=== PATIENT | male | born 1950 | race Caucasian/White ===

== ENCOUNTER 2018-10-23 15:02 | Outpatient (REF) | payer MEDICARE, SELFPAY ==
[2018-10-23 19:39] LABS: HCT 41.8 % (40.0-50.0); HGB 13.5 g/dL (13.5-17.5); Mean Corp. HGB Concentration 32.3 g/dL (32.0-36.0); Mean Corpuscular Hemoglobin 29.7 pg (27.0-33.0); Mean Corpuscular Volume 92.1 fL (80-95); Mean Platelet Volume 11.3 fL (8.0-11.0); Platelet Count 258 x1000/uL (130-400); RBC 4.54 m/cumm (4.50-6.00); RBC Distribution Width 14.4 % (11.8-14.1); White Blood Cell Count 8.38 k/cumm (4.4-10.8)
[2018-10-23 19:40] LABS: ALT 271 U/L (12-78); AST 163 U/L (15-37); Albumin 3.5 g/dL (3.4-5.0); Alkaline Phosphatase 485 U/L (46-116); Anion Gap 8.4 mmol/L (3-11); BUN 52 mg/dL (7-18); Bilirubin, Total 1.4 mg/dL (0.2-1.0); CO2 26.6 mmol/L (21.0-32.0); CREATININE 1.42 mg/dL (0.70-1.30); Calcium 9.6 mg/dL (8.5-10.1); Chloride 97 mmol/L (98-107); Estimated GFR 49.73 (mL/min/1.73m2); Glucose 143 mg/dL (70-100); Potassium 4.6 mmol/L (3.5-5.1); Sodium 132 mmol/L (136-145); Total Protein 7.9 g/dL (6.4-8.2)
[2018-10-26 10:13] LABS: PSA, Screening 0.5 ng/ml (0-4.5)
== END 2018-10-23 15:22 ==
LOC: NCHCN 15:02
PROVIDERS: PCP Physician Assistant; Visit Provider Physician Assistant Medical
DX: R63.4 Abnormal weight loss (principal); E11.9 Type 2 diabetes mellitus without complications; I10 Essential (primary) hypertension; F10.10 Alcohol abuse, uncomplicated; Z12.5 Encounter for screening for malignant neoplasm of prostate; R94.5 Abnormal results of liver function studies
CPT/HCPCS: 80053; 84153; 85027

== ENCOUNTER 2018-12-23 13:13 | Outpatient (REF) | payer MEDICARE, SELFPAY ==
[2018-12-23 20:57] LABS: HCT 39.5 % (40.0-50.0); HGB 13.2 g/dL (13.5-17.5); Mean Corp. HGB Concentration 33.4 g/dL (32.0-36.0); Mean Corpuscular Hemoglobin 30.8 pg (27.0-33.0); Mean Corpuscular Volume 92.1 fL (80-95); Mean Platelet Volume 11.3 fL (8.0-11.0); Platelet Count 181 x1000/uL (130-400); RBC 4.29 m/cumm (4.50-6.00); RBC Distribution Width 14.6 % (11.8-14.1); White Blood Cell Count 5.82 k/cumm (4.4-10.8)
[2018-12-23 21:21] LABS: Anion Gap 11.4 mmol/L (3-11); BUN 12 mg/dL (7-18); CO2 25.6 mmol/L (21.0-32.0); CREATININE 0.87 mg/dL (0.70-1.30); Calcium 9.2 mg/dL (8.5-10.1); Chloride 102 mmol/L (98-107); Glucose 133 mg/dL (70-100); Potassium 4.4 mmol/L (3.5-5.1); Sodium 139 mmol/L (136-145)
[2018-12-23 21:43] LABS: Troponin I < 0.05 ng/mL (0.00-0.06)
== END 2018-12-23 13:33 ==
LOC: NCHCN 13:13
PROVIDERS: PCP Physician Assistant Medical; Visit Provider Physician Assistant Medical
DX: R07.89 Other chest pain (principal); I10 Essential (primary) hypertension; R42 Dizziness and giddiness
CPT/HCPCS: 80048; 85027; 84484

== ENCOUNTER 2018-12-30 00:03 | Outpatient (CLI) | payer MEDICARE, SELFPAY ==
--- NOTE | 2018-12-30 09:30 | MERGEMPI_ITS ---
*[facility]* *[facility]* [address] [place] [address] Myocardial Perfusion Imaging - SPECT Regadenoson Date of study: 12/30/2018 *PATIENT PRESENTATION* Height: 176.5cm (69.5in) Blood Pressure: Weight: 75kg (165lb) BSA: 1.92m^2 Referring physician: Isak Paulino Ordering physician: Liam Yung V Impressions: - Normal myocardial perfusion and contraction after pharmacological stress. - Low risk of cardiac events. Summary: 1. Myocardial perfusion imaging: No myocardial perfusion defects noted. 2. The calculated left ventricular ejection fraction after stress: 51%. LV global systolic function is low normal. No left ventricular regional motion abnormality. 3. Stress ECG conclusions: The stress ECG is negative. 4. Baseline ECG: Sinus bradycardia. 5. Imaging information: gated. Image quality reduced due to diaphragmatic attenuation. Attenuation correction used. Indication: R07.89, Appropriate Use Criteria: A (Appropriate). History: REASON FOR VISIT: PER PT'S REPORT HE HAS BEEN EXPERIENCING PROGRESSIVELY WORSENING EPISODES OF INTERMITTENT CHEST PAINS ASSOCIATED WITH SHORTNESS OF BREATH, DIAPHORESIS AND AT TIMES NAUSEA. SOMETIMES THE CHEST PAIN WILL RADIATE DOWN HIS LEFT ARM. IT IS ALWAYS RELATED TO ACTIVITY AND IT WILL SUBSIDE WITH REST. Risk factors: Family history of coronary artery disease. Hypertension. Diabetes mellitus. Dyslipidemia. ALLERGIES: PENICILLINS. NSAIDS. MEDICATIONS: FERROUS SULFATE 325 MG WITH VITAMIN C DAILY. LISINOPRIL 5 MG DAILY. ATENOLOL 25 MG DAILY. OMEPRAZOLE 20 MG DAILY. ALLOPURINOL 300 MG DAILY. Imaging Technique: Protocol: Regadenoson. Acquisition: Gated SPECT; 1 day - rest/stress. The patient was imaged in the supine position. Attenuation correction used. Isotope administration: - Rest. Tc[99m]-sestamibi. Dose: 10.2mCi. Injection time: 09:20 AM. Injection to stress time: 00:45. - Stress. Tc[99m]-sestamibi. Dose: 32mCi. Injection time: 11:15 AM. 1-2 min before end of exercise Baseline ECG: SINUS BRADYCARDIA RHYTHM HR 57 BPM. Sinus bradycardia. Stress protocol: +--------+--+ + + !Stage !HR!BP (mmHg) !Comments ! +--------+--+ + + !Baseline!60!150/76 (101)! ! +--------+--+ + + !1 min !86!156/82 (107)!Inject Regadenoson.! +--------+--+ + + !3 min !74!160/80 (107)! ! +--------+--+ + + !6 min !69!150/70 (97) ! ! +--------+--+ + + * Stress results: The rate-pressure product for the peak heart rate and blood pressure was 70147ce Hg/min. Stress ECG: STRESS TEST ENDED IN 6 MINUTES AND 21 SECONDS. PT EXPERIENCED NO SIGNIFICANT SIDE EFFECTS FROM LEXISCAN INJECTION. NORMAL HEART RATE AND BLOOD PRESSURE RESPONSE TO LEXISCAN INJECTION. NO ECTOPY. NO ANGINA. NO SIGNIFICANT ST SEGMENT CHANGES. The stress ECG is negative. Myocardial perfusion: Imaging information: gated. Image quality reduced due to diaphragmatic attenuation. Left ventricular size is normal. No myocardial perfusion defects noted. Ventricular Function (Wall Motion): The calculated left ventricular ejection fraction after stress: 51%. LV global systolic function is low normal. No left ventricular regional motion abnormality. Right ventricular function is normal. Study data: Isak Paulino MD supervised and was readily available during the procedure. This study was interpreted by [facility]. Study status: Routine. Consent: The risks, benefits, and alternatives to the procedure were explained to the patient and informed consent was obtained. Procedure: Initial setup. A baseline ECG was recorded. Surface ECG leads and manual cuff blood pressure measurements were monitored. Heart sounds: Normal. Lung sounds: Normal. Regadenoson stress test. Stress testing was performed, with regadenoson by intravenous bolus, for a total dose of 0.4mgover 10.00sec, followed by a 5ml saline flush. The infusion was terminated due to per protocol. The patient was unable to exercise due to leg, joint, or back pain. Study completion: All catheters inserted during the procedure were removed. The patient tolerated the procedure well and was discharged from the lab. Discharge: The patient left the laboratory in stable condition. Birthdate: Patient birthdate: 1950. Sex: Gender: male. Study date: Study date: 12/30/2018. Study time: 00:01 AM. Signature Documentation: - The imaging portion of this study was interpreted by Nuclear Laser Systems Engineer Isak Paulino MD. - The Stress ECG portion of this study was interpreted by Isak Paulino MD. Electronically signed by Isak Paulino 12/30/2018 12:50
[2018-12-30] MEDS: Regadenoson 0.4 MG/5 ML SYR IVP (11:29)
== END 2018-12-30 00:23 ==
PROVIDERS: PCP Physician Assistant Medical; Visit Provider Physician Assistant Medical
DX: R07.89 Other chest pain (principal); R06.02 Shortness of breath; I10 Essential (primary) hypertension; E11.9 Type 2 diabetes mellitus without complications; E78.5 Hyperlipidemia, unspecified; Z82.49 Family history of ischemic heart disease and other diseases of the circulatory system
CPT/HCPCS: 78452; 93016; 93018; 93017; J2785

== ENCOUNTER 2019-05-24 18:17 | Outpatient (REF) | payer MEDICARE, SELFPAY ==
[2019-05-24 19:57] LABS: COMMENT (LAB VIEW ONLY) 188.11 mg/dL; Microalb ug/mg Crea 13.3 ug/mg Cr
== END 2019-05-24 18:37 ==
LOC: NCHCN 18:17
PROVIDERS: PCP Physician Assistant Medical; Visit Provider Internal Medicine
DX: E11.9 Type 2 diabetes mellitus without complications (principal)
CPT/HCPCS: 82043; 82570

== ENCOUNTER 2020-03-27 18:45 | Outpatient (REF) | payer MEDICARE, SELFPAY ==
[2020-03-27 20:02] LABS: HCT 36.4 % (40.0-50.0); HGB 12.9 g/dL (13.5-17.5); MCH 33.6 pg (27.0-33.0); MCHC 35.4 % (32.0-36.0); MCV 94.8 fL (80-95); MPV 11.3 fL (8.0-11.0); Platelet Count 197 10^3/uL (130-400); RBC 3.84 10^6/uL (4.36-5.78); RDW 14.1 % (11.8-14.1); RDW-SD 48.7 fL; WBC 7.37 10^3/uL (4.4-10.8)
[2020-03-27 20:19] LABS: AST 40 U/L (15-37); Albumin 3.9 g/dL (3.4-5.0); Alkaline Phosphatase 100 U/L (46-116); Anion Gap 6.9 mmol/L (3-11); BUN 19 mg/dL (7-18); Bilirubin, Total 0.6 mg/dL (0.2-1.0); CO2 28.1 mmol/L (21.0-32.0); CREATININE 1.29 mg/dL (0.70-1.30); Calcium 8.6 mg/dL (8.5-10.1); Chloride 102 mmol/L (98-107); Estimated GFR 55.22 (mL/min/1.73m2); Glucose 165 mg/dL (74-106); Potassium 4.8 mmol/L (3.5-5.1); Sodium 137 mmol/L (136-145)
[2020-03-28 10:13] LABS: Iron 103 ug/dL (65-175); Transferrin Sat 41 % (20-55)
[2020-03-28 10:14] LABS: Total Iron Binding Capacity 251 ug/dL (250-450)
[2020-03-28 10:15] LABS: Ferritin 940 ng/mL (26-388)
[2020-03-28 10:33] LABS: Total Protein 7.3 g/dL (6.4-8.2)
== END 2020-03-27 19:05 ==
LOC: NCHCN 18:45
PROVIDERS: PCP Physician Assistant Medical; Visit Provider Internal Medicine
DX: D64.9 Anemia, unspecified (principal); K21.9 Gastro-esophageal reflux disease without esophagitis; F10.10 Alcohol abuse, uncomplicated; R07.89 Other chest pain; M16.0 Bilateral primary osteoarthritis of hip
CPT/HCPCS: 80053; 85027; 82728; 83540; 83550

== ENCOUNTER 2021-03-22 16:59 | Outpatient (REF) | payer MEDICARE, SELFPAY ==
[2021-03-22 19:28] LABS: HCT 35.8 % (40.0-50.0); HGB 11.8 g/dL (13.5-17.5); MCH 30.6 pg (27.0-33.0); MPV 10.9 fL (8.0-11.0); Platelet Count 205 10^3/uL (130-400); RBC 3.85 10^6/uL (4.36-5.78); RDW-SD 47.8 fL; WBC 8.45 10^3/uL (4.4-10.8)
[2021-03-22 19:35] LABS: ALT 39 U/L (16-63); AST 35 U/L (15-37); Albumin 3.7 g/dL (3.4-5.0); Alkaline Phosphatase 98 U/L (46-116); Anion Gap 5.5 mmol/L (3-11); BUN 16 mg/dL (7-18); Bilirubin, Total 0.4 mg/dL (0.2-1.0); CO2 31.5 mmol/L (21.0-32.0); CREATININE 1.2 mg/dL (0.70-1.30); Calcium 8.8 mg/dL (8.5-10.1); Chloride 103 mmol/L (98-107); Estimated GFR 59.86 (mL/min/1.73m2); Glucose 111 mg/dL (74-106); NT-proBNP 368 pg/mL (<300); Potassium 4.5 mmol/L (3.5-5.1); Sodium 140 mmol/L (136-145); Total Protein 7.4 g/dL (6.4-8.2)
== END 2021-03-22 17:00 | disposition home or self-care (01) ==
LOC: NCHCN 16:59
PROVIDERS: PCP Physician Assistant Medical; Visit Provider Internal Medicine
DX: E11.9 Type 2 diabetes mellitus without complications (principal); I10 Essential (primary) hypertension; J84.9 Interstitial pulmonary disease, unspecified; F10.10 Alcohol abuse, uncomplicated
CPT/HCPCS: 80053; 85027; 83880

== ENCOUNTER 2021-09-19 16:19 | Outpatient (REF) | payer MEDICARE, SELFPAY ==
[2021-09-19 22:30] LABS: COMMENT (LAB VIEW ONLY) 424.71 mg/dL; Microalb ug/mg Crea 13.8 ug/mg Cr
== END 2021-09-19 16:20 | disposition home or self-care (01) ==
LOC: NCHCN 16:19
PROVIDERS: PCP Physician Assistant Medical; Visit Provider Internal Medicine
DX: E11.9 Type 2 diabetes mellitus without complications (principal); I10 Essential (primary) hypertension
CPT/HCPCS: 82043; 82570

== ENCOUNTER 2022-03-22 12:36 | Outpatient (REF) | payer MEDICARE, SELFPAY ==
[2022-03-22 19:14] LABS: Abs Immature Grans 0.01 10^3/uL (0.0-0.06); Absolute Basophil Count 0.04 10^3/uL (0.0-0.2); Absolute Eosinophil Count 0.06 10^3/uL (0.0-0.7); Absolute Lymphocyte Count 1.98 10^3/uL (1.2-3.4); Absolute Monocyte Count 0.67 10^3/uL (0.1-0.8); Absolute Neutrophil Count 4.89 10^3/uL (1.2-6.7); Basophils % 0.5; Eosinophils % 0.8; HCT 38.9 % (40.0-50.0); HGB 13.1 g/dL (13.5-17.5); Immature Grans % 0.1; Lymphocytes % 25.9; MCH 30.2 pg (27.0-33.0); MCHC 33.7 % (32.0-36.0); MCV 90 fL (80-95); MPV 10.6 fL (8.0-11.0); Monocytes % 8.8; Neutrophils % 63.9; Platelet Count 186 10^3/uL (130-400); RBC 4.34 10^6/uL (4.36-5.78); RDW 12.3 % (11.8-14.1); RDW-SD 40.4 fL; Reticulocyte 1.5 % (0.5-2.4); WBC 7.65 10^3/uL (4.4-10.8)
[2022-03-22 20:03] LABS: ALT 36 U/L (16-63); AST 30 U/L (15-37); Albumin 3.8 g/dL (3.4-5.0); Alkaline Phosphatase 98 U/L (46-116); Anion Gap 6.2 mmol/L (3-11); BUN 15 mg/dL (7-18); Bilirubin, Total 0.3 mg/dL (0.2-1.0); C-Reactive Protein 0.19 mg/dL (0.0-0.3); CO2 31.8 mmol/L (21.0-32.0); Chloride 102 mmol/L (98-107); Estimated GFR 80.47 (mL/min/1.73m2); Folate 13.7 ng/mL (8.6-20.0); Glucose 86 mg/dL (74-106); Lipase 41 U/L (73-393); Potassium 4.3 mmol/L (3.5-5.1); Sodium 140 mmol/L (136-145); Total Protein 8.2 g/dL (6.4-8.2); Vitamin B12 440 pg/mL (193-986)
== END 2022-03-22 12:37 | disposition home or self-care (01) ==
LOC: NCHCN 12:36
PROVIDERS: PCP Physician Assistant Medical; Visit Provider Internal Medicine
DX: K80.11 Calculus of gallbladder with chronic cholecystitis with obstruction (principal); D64.9 Anemia, unspecified; R10.32 Left lower quadrant pain; M48.061 Spinal stenosis, lumbar region without neurogenic claudication
CPT/HCPCS: 80053; 83690; 82607; 82746; 85025; 85045; 86140

== ENCOUNTER → 2023-02-20 14:34 | Outpatient (BNVA) | payer MEDICARE, SELFPAY | PROVIDERS: PCP Internal Medicine; Referring Provider Internal Medicine; Visit Provider Surgery | DX: R10.9 Unspecified abdominal pain (principal); D64.9 Anemia, unspecified; K27.9 Peptic ulcer, site unspecified, unspecified as acute or chronic, without hemorrhage or perforation; E11.9 Type 2 diabetes mellitus without complications; Z87.19 Personal history of other diseases of the digestive system | CPT/HCPCS: 99203; 99243 ==

== ENCOUNTER 2023-02-27 13:20 | Outpatient (CLI) | payer MEDICARE, MEDICAID, SELFPAY ==
[2023-02-27 12:33] LABS: Abs Immature Grans 0.02 10^3/uL (0.0-0.06); Absolute Basophil Count 0.03 10^3/uL (0.0-0.2); Absolute Eosinophil Count 0.05 10^3/uL (0.0-0.7); Absolute Lymphocyte Count 1.44 10^3/uL (1.2-3.4); Absolute Monocyte Count 0.55 10^3/uL (0.1-0.8); Absolute Neutrophil Count 5.38 10^3/uL (1.2-6.7); Basophils % 0.4; Eosinophils % 0.7; HCT 37.1 % (40.0-50.0); HGB 12.8 g/dL (13.5-17.5); Immature Grans % 0.3; Lymphocytes % 19.3; MCH 30.5 pg (27.0-33.0); MCHC 34.5 % (32.0-36.0); MCV 89 fL (80-95); MPV 10.6 fL (8.0-11.0); Monocytes % 7.4; Neutrophils % 71.9; Platelet Count 216 10^3/uL (130-400); RBC 4.19 10^6/uL (4.36-5.78); RDW 11.9 % (11.8-14.1); RDW-SD 38.4 fL; WBC 7.47 10^3/uL (4.4-10.8)
[2023-02-27 13:32] LABS: TSH (W/Ref FT4) 3.36 uIU/mL (0.36-3.74)
[2023-02-27 21:52] LABS: Rheumatoid Factor <8.6 IU/mL (<12.0)
[2023-02-28 09:24] LABS: Cyclic Citrullinated Peptide <2.5 U/mL (<5.0); IgA 503 mg/dL (85-499); IgG 920 mg/dL (610-1616); IgM 45 mg/dL (35-242)
[2023-02-28 16:55] LABS: ANA Interpretation Negative (Negative)
== END 2023-02-27 13:21 | disposition home or self-care (01) ==
LOC: LBO 13:21
PROVIDERS: PCP Internal Medicine; Visit Provider Physician Assistant Surgical
DX: J84.9 Interstitial pulmonary disease, unspecified (principal); R06.00 Dyspnea, unspecified; G89.29 Other chronic pain; M54.9 Dorsalgia, unspecified
CPT/HCPCS: 36415; 82784; 86200; 84443; 85025; 86038; 86431

== ENCOUNTER 2023-03-07 02:32 | Outpatient (CLI) | payer MEDICARE, SELFPAY ==
[2023-03-07] MEDS: Albuterol HFA 18 GM 200 PUFF INH IH (09:32)
[2023-03-07] MEDS: Inhaler, Assist Device 1 EACH MC (09:32)
--- NOTE | 2023-03-11 07:36 | W.PFT ---
Date of service: 03/07/23 Time of Service: 08:13 Pulmonary Function Test Result Indications: ILD Interpretation Spirometry: No airflow limitation. There is restrictive appearing spirometry. No bronchodilator response. Lung Volumes: Moderate-severe restrictive lung disease. Diffusion Capacity: Decreased diffusion Airway Pressure: Normal airways resistance. Impression Moderate to severe restrictive lung disease Clinical Correlation therefore is recommended.
--- NOTE | 2023-03-11 07:49 | W.6MWT ---
Date of service: 03/07/23 Time of Service: 08:04 6 Minute Walk Test Note: 6 Minute Walk Test Distance walked: 500 feet Desaturations: No significant desaturations Heart rate changes: 86bpm to 108bpm Recommendation: No supplemental O2 needed Maria Fernanda Georges MD Pulmonary & Critical Care Medicine
== END 2023-03-07 02:33 | disposition home or self-care (01) ==
LOC: RT 02:32
PROVIDERS: PCP Internal Medicine; Visit Provider Physician Assistant Surgical
DX: J84.9 Interstitial pulmonary disease, unspecified (principal)
CPT/HCPCS: 94060; 94618; 94726; 94729

== ENCOUNTER → 2023-03-13 01:43 | Outpatient (CLI) | payer MEDICARE, SELFPAY ==
--- NOTE | 2023-03-13 09:10 | DI.CT_ITS ---
Exam(s) CT CHEST HIGH RESOLUTION EXAM: CT CHEST HIGH RESOLUTION CLINICAL HISTORY: Evaluation of ILD,INTERSTITAL LUNG DISEASE,J84.9. TECHNIQUE: Imaging protocol: Axial computed tomography images were obtained and coronal and sagittal reformatted images were created and reviewed. Additional 1 millimeter high-resolution images were p erformed in inspiration and expiration. COMPARISON: CT CT ABD/PELVIS W/ CONTRAST from 01/16/2023 FINDINGS: Exam is somewhat limited by respiratory motion. Tracheobronchial tree: Patent where visualized. Mediastinum and Sarah: No dominant adenopathy or fluid collection. Pulmonary parenchyma: Low lung volumes. No consolidation or dominant measurable mass. Severe bilater al interstitial thickening in both upper and lower lobes, greater peripherally. Some honeycombing pe ripherally. No evidence of mass. Pleura: No effusion or pneumothorax. Heart: The heart is mildly dilated. Mild coronary artery calcifications are seen. Aorta: Thoracic aorta non-dilated. Upper abdomen: Moderate size hiatal hernia. Colonic diverticulosis. Atrophic pancreas. Status pos t cholecystectomy. Lymph nodes: Within normal limits. Bones:Degenerative changes with endplate osteophytes. No compression fractures. Tubes, Catheters, and Lines: None IMPRESSION: Moderate to severe bilateral pulmonary fibrosis with with some peripheral honeycombing. RADIATION DOSE DELIVERED: 454.25mGy.cm Total DLP DATA REPOSITORY: All CT scans at this facility are submitted to the National Radiology Data Registry (NRDR) Dose Index Registry (DIR) with the [employer] (ACR). RADIATION OPTIMIZATION: All CT scans at this facility use at least one of these dose optimization te chniques: automated exposure control; mA and/or kV adjustment per patient size (includes targeted exa ms where dose is matched to clinical indication); or iterative reconstruction.
== END ==
PROVIDERS: PCP Internal Medicine; Visit Provider Physician Assistant Surgical
DX: J84.9 Interstitial pulmonary disease, unspecified
CPT/HCPCS: 71250

== ENCOUNTER → 2023-03-20 13:16 | Outpatient (CLI) | payer MEDICARE, SELFPAY ==
--- NOTE | 2023-03-20 09:45 | DI.RAD_ITS ---
Exam(s) XR LUMBAR SPINE COMP W FLEX/EX EXAM: XR LUMBAR SPINE COMP W FLEX/EX CLINICAL HISTORY: LOW BACK PAIN-M54.50. TECHNIQUE: 2D digital imaging was performed of the lumbar spine. Seven images were obtained. AP, l ateral, flexion, extension right oblique, left oblique and L5-S1 spot views were obtained. COMPARISON: CT CT ABD/PELVIS W/ CONTRAST from 01/16/2023 FINDINGS: BONES: No fracture or destructive lesion. Endplate osteophytes are seen at multiple levels of the lum bar spine. Degenerative changes of the facets are seen from L2-3 through L5-S1. Note is made of umair ed degenerative changes of the hips, left greater than right. DISKS: There is disc space narrowing at T11-T12. ALIGNMENT: Lumbar spinal alignment is within normal limits. No significant subluxation with flexion or extension. No spondylolysis or spondylolisthesis. SOFT TISSUE: Atherosclerosis. IMPRESSION: 1. Moderate degenerative changes in the lumbar spine. 2. Marked degenerative changes in the hips is noted. DATA REPOSITORY: RADIATION DOSE DELIVERED:
== END ==
PROVIDERS: PCP Internal Medicine; Visit Provider Preventive Medicine Occupational Medicine
DX: M51.37 Other intervertebral disc degeneration, lumbosacral region (principal)
CPT/HCPCS: 72114

== ENCOUNTER 2023-03-28 11:33 | Outpatient (CLI) | payer MEDICARE, SELFPAY | END 2023-03-28 11:34 | disposition home or self-care (01) | LOC: LBO 11:34 | PROVIDERS: PCP Internal Medicine; Visit Provider Student in an Organized Health Care Education/Training Program | DX: Z51.81 Encounter for therapeutic drug level monitoring (principal) | CPT/HCPCS: 36415; 85610 ==

== ENCOUNTER 2023-04-02 12:12 | Outpatient (CLI) | payer MEDICARE, SELFPAY ==
--- NOTE | 2023-04-02 06:00 | DI.RAD_ITS ---
Exam(s) XR PAIN CLINIC LUMBAR SP 2V EXAM: XR PAIN CLINIC LUMBAR SP 2V CLINICAL HISTORY: DX: Lumbar Spondylosis TECHNIQUE: 2D and realtime digital imaging was performed. Radiologist not present. CONTRAST MATERIAL: None. COMPARISON: No exams were available for comparison FINDINGS: Fluoroscopy was provided for pain management therapy. Please refer to procedure report or details. Radiation Exposure Index: Ka,r=14.62 mGy IMPRESSION: As above. RADIATION DOSE DELIVERED:
[2023-04-02 12:23] VITALS: BP 155/80; PULSE 75; RESP 20; TEMP 36.7; O2SAT 95
[2023-04-02 13:13] VITALS: BP 158/90; PULSE 71; RESP 25; O2SAT 99
--- NOTE | 2023-04-02 13:13 | PDOC.PAIN_ITS ---
Date of service: 04/02/23 Time of Service: 13:13 Pain Managment Procedure Note Procedure Note Procedure Note: PROCEDURE NOTE Bilateral Lumbar Medial Branch Blocks Date of Service: April 02, 2023 Patient: Ethan Carreon Jr Provider: Andi Jang DO, MPH Ethan Carreon Jr has been referred to the [facility] for lumbar medial branch blocks. Pre-operative diagnosis: Lumbar Spondylosis without Myelopathy Post-operative diagnosis: Same Pre-procedure pain: VAS= 8/10 COMMENTS: I previously evaluated him in the office. His symptoms are unchanged. Iliana was interviewed and the medical records were reviewed. There were no medical, pharmacologic, radiographic or other structural contraindications to attempting fluoroscopically guided local anesthetic lumbar medial branch blocks. Risks and potential side effects were discussed. I also discussed the potential benefit(s) of the procedure with Ethan, and voiced concerns were addressed. After Ethan was completely informed about the procedure, the printed consent form was signed. A standard time-out procedure was performed. Ethan was placed in the prone position on the fluoroscopy table. Automated blood pressure cuff and pulse oximeter were applied. The skin entry points for approaching the anatomic target points of the segmental medial branches of bilateral L3,L4,L5 were identified with fluoroscopy and marked. The skin at the target site area was thoroughly prepared with Chlorhexadine. The skin was then draped. Next, a 25 gauge 3.5 spinal needle was placed under fluoroscopic guidance down on to the target point (the articular pillar) for each respective segmental medial branch. Position was confirmed in A/P and lateral views. Aspiration revealed no blood or clear fluid. Next, 0.25ml of omnipaque 240 was injected at each level. No contrast following a vascular or neural pattern was visualized under continuous fluoroscopy. Next, 0.25 ml of preservative-free 0.5% bupivicaine was injected at each level. There was no unusual discomfort expressed by Ethan. The needles were withdrawn without difficulty. (49 mls of Omnipaque was wasted) Ethan was observed and was without hemodynamic, neurologic, or allergic reactions.? Fluoroscopic images were digitally archived. Provacative testing using the Modified Velázquez's facet loading test- Left side Right Side Directly before the block VAS (0-10) = 8/10 VAS (0-10) = 8/10 Five minutes after the block VAS (0-10) = 2/10 VAS (0-10) = 2/10 Percentage relief obtained with this diagnostic block 80% 80% Any improved physical functioning directly after the blocks? Able to move much easier Follow up plans and appointments were discussed with Ethan. Ethan was inst ructed to keep careful note of how the usual pain was modified by these injections. Specifically, to keep a pain diary for the next 4 hours using a numeric pain scale of 0-10 and report these results. Post procedure instruction was given as documented in the nursing documentation and having met discharge criteria, the patient was [facility]. Based on the medial branches blocked today, if they patient has adequate relief and we are able to proceed to radiofrequency ablation, the treatment should result in the denervation of the bilateral L4-L5 and L5-S1 facet joints. We would expect to denervate a total of 4 facets during the radiofrequency ablation. COMMENTS: No apparent complications. Post-procedure pain: VAS= 2/10 Ethan will call back with 0-4 hour post-procedure pain scores. I personally performed the entire procedure. ANDI JANG DO, MPH ABPM&R-subspecialty board certification in Pain Medicine [facility] [facility]
[2023-04-02] MEDS: Bupivacaine 0.5% Pres-Free 10 ML VIAL IJ (13:32)
[2023-04-02] MEDS: Omnipaque 240 MG/ML 50 ML BTL IJ (13:32)
== END 2023-04-02 12:13 | disposition home or self-care (01) ==
LOC: PC 12:13
PROVIDERS: PCP Internal Medicine; Visit Provider Preventive Medicine Occupational Medicine
DX: M54.50 Low back pain, unspecified (principal); M47.816 Spondylosis without myelopathy or radiculopathy, lumbar region
CPT/HCPCS: 64493; 64494; 72100; Q9967

== ENCOUNTER 2023-04-15 07:40 | Day surgery (SDC) | payer MEDICARE, SELFPAY ==
[2023-04-15 08:34] VITALS: BP 158/76; PULSE 76; RESP 18; TEMP 36.4; O2SAT 98
--- NOTE | 2023-04-15 08:40 | ANES.PREOP_ITS ---
General Info Date of Service Date Performed: 04/15/23 Height: 5 ft 9 in Weight: 77.8 kg Body Mass Index (BMI): 25.3 Surgical Procedure: Operation Date: 04/15/23 09:35 Proposed Procedure Side Surgeon p Colonoscopy/Gastroscopy Haylee Wright, Meds Allergies and Home Medications Allergies Allergy/AdvReac Type Severity Reaction Status Date / Time metformin Allergy Unknown Verified 04/15/23 08:15 penicillin Allergy Intermediate Skin Rash Uncoded 04/15/23 08:15 Home Medication Medication Instructions Recorded gemfibrozil 600 mg tablet See Rx Instructions PO DIRECTED 02/06/23 meloxicam 7.5 mg tablet 7.5 mg PO BID 02/06/23 omeprazole 20 mg capsule,delayed 20 mg PO DAILY 02/20/23 release albuterol sulfate 90 mcg/actuation 2 puff inhalation QID PRN 02/27/23 aerosol inhaler (Ventolin HFA) shortness of breath or wheezing #8.5 grams omega-3s 350 [id number]-[id number] 1 cap PO DAILY 03/20/23 [id number] oil 600 mg capsule (Fish Oil) nintedanib 150 mg capsule (Ofev) 150 mg PO Q12H #60 caps 03/28/23 Current Visit Medications: Current Medications Generic Name Dose Route Start Last Admin Trade Name Barb PRN Reason Stop Dose Admin Hyoscyamine Sulfate 0.125 mg 04/15/23 09:14 Hyoscyamine 0.125 Mg Sl/Oral/Chew SL 05/15/23 09:13 DIRECTED PRN Ringer's Solution 1,000 mls @ 80 mls/hr 04/15/23 06:00 IV 05/14/23 23:59 [facility] IV Miscellaneous Supplies 1 each 04/15/23 06:00 Iv Access IV 05/14/23 23:59 DIRECTED YOLETTE Ondansetron HCl 4 mg 04/15/23 09:14 Ondansetron 4 Mg/2 Ml Vial IVP 05/15/23 09:13 Q4H PRN PRN Nausea / Vomiting Sodium Chloride 0 ml 04/15/23 06:00 Normal Saline Flush 10 Ml Syr IV 05/14/23 23:59 PRN PRN Sodium Chloride 0 ml 04/15/23 06:00 Normal Saline 10 Ml Vial IJ 05/14/23 23:59 DIRECTED PRN Sterile Water 0 ml 04/15/23 06:00 Water,Injection,Sterile 10 Ml Vial IJ 05/14/23 23:59 DIRECTED PRN PFSH Active Problems Active Problems: Problem Status Onset Code Abdominal mass, left lower quadrant R19.04 GERD (gastroesophageal reflux disease) K21.9 IPF (idiopathic pulmonary fibrosis) J84.112 Low back pain M54.50 Chronic back pain M54.9, G89.29 Osteoarthritis, hip, bilateral M16.0 Bursitis of left hip M70.72 Medical History Medical History Hypertensive disorder Hyperlipidemia Gout Type 2 diabetes mellitus Hx of carpal tunnel syndrome left Injury of right rotator cuff and repair Osteoarthritis bilateral hips Anemia History of esophageal reflux Spinal stenosis Peptic ulcer disease ILD (interstitial lung disease) significant Surgical History Surgical History History of ERCP Pt. reports when he went for gall bladder removal he was sent to [facility] to have stones removed then back to [facility] to have gall bladder removed, pt. unsure of procedure, some sort of scope he reports H/O colonoscopy History of hernia repair History of appendectomy H/O repair of right rotator cuff Hx of cholecystectomy Tobacco Smoking/Tobacco Use Status: Never Alcohol Alcohol Intake: current Alcohol intake frequency: a few times a week Alcohol type: beer Substance Use Substance use: Never Substance use type: does not use Details: alcohol: t-4 , 4 beers Vital Signs and Lab Results Vital Signs Most Recent Vital Signs in EMR: Most Recent Vital Signs Temp Pulse Resp BP Pulse Ox 36.4 C L 76 18 158/76 H 98 04/15/23 08:34 04/15/23 08:34 04/15/23 08:34 04/15/23 08:34 04/15/23 08:34 Point of Care Results Point of Care Results: Finger Stick Blood Glucose 160 04/15/23 08:10 Lab Results Blood Type / Crossmatch: No Data to Display Complete Blood Count: No Data to Display Complete Metabolic Panel: No Data to Display Liver Function Panel: No Data to Display Coagulation Panel: INR International Normalized Ratio 1.0 (0.9-1.1) 03/28/23 11:3 0 Prothrombin Time 10.0 sec (9.3-11.0) 03/28/23 11:30 Cardiac Panel: No Data to Display Arterial Blood Gas: No Data to Display Venous Blood Gas: No Data to Display Pancreas Panel: No Data to Display Thyroid Panel: No Data to Display Infectious Disease: No Data to Display Blood Cultures: No Data to Display Toxicology Panel: No Data to Display Imaging and Studies Imaging and Studies Study information below may be from another EMR and interpreted by another provider. Please see original notes in EMR for more complete details. Stress Test Summary: Impressions: - Normal myocardial perfusion and contraction after pharmacological stress. - Low risk of cardiac events. Summary: 1. Myocardial perfusion imaging: No myocardial perfusion defects noted. 2. The calculated left ventricular ejection fraction after stress: 51%. LV global systolic function is low normal. No left ventricular regional motion abnormality. 3. Stress ECG conclusions: The stress ECG is negative. 4. Baseline ECG: Sinus bradycardia. 5. Imaging information: gated. Image quality reduced due to diaphragmatic attenuation. Attenuation correction used. 12/30/18 Pulmonary Function Summary: Pulmonary Function Test Result Indications: ILD Interpretation Spirometry: No airflow limitation. There is restrictive appearing spirometry. No bronchodilator response. Lung Volumes: Moderate-severe restrictive lung disease. Diffusion Capacity: Decreased diffusion Airway Pressure: Normal airways resistance. Impression Moderate to severe restrictive lung disease Clinical Correlation therefore is recommended. 03/11/23 Anesthesia Assessment and Plan Anesthesia History Personal History: No History of Anesthesia Complications Family History: No Family History of Anesthesia Complications Exercise Tolerance Exercise Tolerance: Metabolic Equivalents<4 Pertinent Negatives Pertinent Negatives: No Symptoms of GERD and No Major Cardiovascular Symptoms or Complaints Cardiac & Pulmonary Exam Cardiac Exam: Normal S1/S2 Heart Sounds (Irregular) Pulmonary Exam: Clear Bilateral Breath Sounds and Other (diminished on right) Implantable Cardiac Device Does patient have a Pacemaker or an ICD?: No Airway Exam Known Difficult Airway: No Mallampati Class: 1 Mouth Opening: Normal (> 3cm) Thyromental Distance: Greater than 3 cm Neck Range of Motion: Limited ROM Neck Circumference: Normal Teeth Condition: Normal Dentition ASA Classification ASA Score: ASA 3 Emergency Case?: No NPO Status NPO Status: NPO Clears >2 hours, Solids >8 hours Anesthesia Plan Resuscitation Status: Full Code Anesthesia Technique: General Anesthesia Airway Planned: Endotracheal Tube Monitors Used: Standard Monitors
[2023-04-15] MEDS: Lactated Ringers 1,000 ML 80 ML IV (08:45)
[2023-04-15 08:47] VITALS: BMI 25.3
--- NOTE | 2023-04-15 08:55 | W.PM.HP.N ---
Date of service: 04/15/23 Time of Service: 08:55 Assessment and Plan Assessment and plan (1) Anemia: Assessment and plan: Plan: Colonoscopy & egd w/ general & natural airway. The?patient will be scheduled by my office. The pt understands that they need to do a bowel prep and the importance of hydration during this.? The patient understands there is a theoretical risk of renal failure.? For healthy patients we use Gatorade/Miralax Informed consent is obtained for the procedural (explained in simple layman's terms that?the pt and/or family could understand) explaining risks vs benefits and alternatives to the procedure and consequences if we do not do the procedure and need/rational for the procedure. Risks include but are not limited to: bleeding, infection, perforation of colon.? This would necessitate emergency surgery to repair the damage w/ possible ostomy; and other associated complications w/ the required surgery. ? Also complications of anesthesia including aspiration, FL/CVA/, inability to complete the procedure. I discussed with the?patient would they could expect during the procedure, post procedure and recovery time and risks.? The patient understands that they need to have a ride home after the procedure.? The patient was given all this information in writing and expressed understanding. If there are any questions or concerns please feel free to contact our office.? Generally Colonoscopy does not require antibiotics prophylaxis, (2) Abdominal mass, left lower quadrant: Status: Acute (3) GERD (gastroesophageal reflux disease): Status: Chronic (4) IPF (idiopathic pulmonary fibrosis): Status: Acute (5) Low back pain: Status: Acute (6) Hypertensive disorder: (7) Hyperlipidemia: (8) Gout: (9) Type 2 diabetes mellitus: (10) Osteoarthritis: (11) History of esophageal reflux: (12) Spinal stenosis: (13) Peptic ulcer disease: (14) ILD (interstitial lung disease): History of Present Illness Narrative: 04/15/23 Patient is here today for colonoscopy & EGD for anemia.??? They completed a bowel prep with just a clear yellow residual effluent.? They not having any chest pain or shortness of breath, currently.? They are not experiencing any fever or chills.? They deny any productive cough or upper respiratory tract infection signs or symptoms.? They are not having abdominal pain, or nausea and vomiting.? They have not had any changes in medications, past medical history or past surgical history since previously being seen in the office. They have not had any accidents or have been in the ER since the clinic pre-operative evaluation. ??I reviewed the procedure with the patient today, including risks and benefits of the procedure, and what they could expect at home for recovery.? All questions are answered to the patient?s satisfaction today, and they are stable to proceed with the proposed procedure. Notes from pulmonary reviewed. Pulmonary Notes MWT 03/07/23 6 Minute Walk Test Distance walked: 500 feet Desaturations: No significant desaturations Heart rate changes: 86bpm to 108bpm HRCT 03/13/23 IMPRESSION: Moderate to severe bilateral pulmonary fibrosis with with some peripheral honeycombing. Labs: negative immunodeficiency, negative autoimmune, ok TSH and CBC Moderate to severe restrictive lung disease due to ILD - UIP pattern, likely IPF. Recommend starting OFEV for antifibrotic therapy. Clinic 02/20/23 RN: Pt here with his , pt reports SOB has gotten worse, he also reports that he needs to find a new PCP because Dr. Galarza told him he will no longer see him. Pt reports pain to his lower left side, sitting in office today pt reports its a 3/10. Pt seen at the request of PCP regarding colon cancer screening. Pt has never had colon cancer screening before.? They denies problems with constipation or diarrhea.? They deny any pain or difficulty with bowel movements, or rectal bleeding.? There is no family history of any colon cancer.? Pt has not had any unexplained weight loss.? Their appetite is good.? ?They deny heart, , or kidney problems. They are not having heartburn or indigestion. They have not had any prior colo-rectal surgery.? The patient has not had a prior FREDDY.? They deny any problems with anesthesia in the past. metofrmin- stopped x1 week ago. doesn't check blood sugars. anemia and blood in stools. at [facility]. [facility]. he is on omprazole. [place] [facility] [place]. asa/nsaids- meloxicam tobacco- no coffee- 1 cup soda/tea- 1-2 week H Saturdays- beers 3-4 Anesthesia: general (without airway) Previous surgical intolerances: No Previous surgical complications: No Pulmonary risk factors: Planned procedure: Yes Sleep apnea risks: No COPD/Asthma/Smoker: Pulmonary fibrosis. He is not on oxygen. He cannot walk more than 20 feet without getting short of breath. Can climb one flight of stairs (12-13 steps) in less than 30 seconds without stopping and without symptoms: He cannot climb stairs. See above. Pulmonary fibrosis. The surgery proposed for this patient is: low risk Active cardiac conditions: none Active risk factors: none ASA (acetylsalicylic acid): not used Beta blockers: not used Kidneys: no concerns DM: yes CVA/FL- no pulm- inerstial fibrosis. +YSLETA DEL SUR pShx GB ERCP bilateral inguinal adn umbilical. appendix should surgery- right anesthesia no comp The patient is an 72year-old male who is being seen today with complaint of radiating intermittent abdominal pain. The patient was accompanied by an adult female for the visit. He reports that Dr. Agrawal was his primary care physician. He is no longer under his care and needs a new PCP. The patient states that he has intermittent abdominal pain radiating to his back which makes it worse at night. He reports that the pain is intermittent but is so severe he has difficulty sitting. He denies having any fever, chills, constipation, or diarrhea. The patient will sometimes go a couple of days without a bowel movement then have a bowel movement every day for the next several. The patient denies any visible hematochezia but was found to have microscopic hematochezia on his last blood work. He was told he is slightly anemic and has been put on an iron supplement. He had a colonoscopy performed by Dr. Bangura in 2014 at [facility] which showed no polyps. He had an abdominal CT done in [place] recently. He states the pain is more in his flank and radiates around to his back. He does have a history of spinal stenosis. He did recently have a CT at [facility] which showed iliopsoas bursitis and severe degenerative arthritis. He has not had a recent CT or MRI of his back. He reports having a few ulcers in the past but has not had any for the past few years. He denies having any acid reflux or dyspepsia and is taking meloxicam and omeprazole 20 mg daily. He is also taking pain medication occasionally. He is not taking his blood pressure at home. He has a history of diabetes and was prescribed metformin, but he discontinued it last week as it was making him dizzy. He has a history of severe bursitis in his back and severe arthritis of his hips. He has a referral to [facility] to receive injections on his hips and back but has not been called to schedule an appointment yet. He states that he has difficulty with ambulating. He has a history of spinal stenosis and was scheduled for back surgery in 2015 but this was not performed due to a shoulder dislocation. He denies taking tramadol for his back pain. He denies having an MRI done in the last 10 years. He denies having any throat pain or dysphagia. The patient reports that he does have shortness of breath upon very little physical exertion. The patient is not currently on oxygen or using an inhaler for his lung disease. He is scheduled to see a wall steamer next week. He denies having any problems with anesthesia. He denies having any history of myocardial infarction or stroke. The patient has a history of childhood incontinence. He was told it was due to week kidneys, for which he was never medicated. He reports having hernia repair surgery performed 4 to 5 times for groin and abdominal hernia. He also had appendectomy and cholecystectomy. He denies having any heart surgeries. He reports having tonsilloliths removed at [facility] in 2015. He is a non-smoker. He drinks 1 cup of coffee every day and drinks soda once or twice a week with dinner. He occasionally has 3 or 4 light beers on the weekends. He denies taking aspirin, ibuprofen or Naprosyn. He reports that he is allergic to METFORMIN and PENICILLIN. Review of Systems All systems reviewed & are unremarkable except as noted in HPI and below PFSH All Active Problems Abdominal mass, left lower quadrant (Acute) GERD (gastroesophageal reflux disease) (Chronic) IPF (idiopathic pulmonary fibrosis) (Acute) Low back pain (Acute) Chronic back pain (Acute) Osteoarthritis, hip, bilateral (Acute) Bursitis of left hip (Acute) Medical History Hypertensive disorder Hyperlipidemia Gout Type 2 diabetes mellitus Hx of carpal tunnel syndrome left Injury of right rotator cuff and repair Osteoarthritis bilateral hips Anemia History of esophageal reflux Spinal stenosis Peptic ulcer disease ILD (interstitial lung disease) significant Surgical History History of ERCP Pt. reports when he went for gall bladder removal he was sent to [facility] to have stones removed then back to [facility] to have gall bladder removed, pt. unsure of procedure, some sort of scope he reports H/O colonoscopy History of hernia repair History of appendectomy H/O repair of right rotator cuff Hx of cholecystectomy Social History Smoking/Tobacco Use Status: Never Smoking risk assessment performed?: Yes Alcohol Intake: current Alcohol Intake frequency: a few times a week Alcohol type: beer Drug use: Never Substance use type: does not use Details: alcohol: t-4 , 4 beers Housing: house Additional Social history: unable to assess [employer] Allergies and Home Medications Allergies Allergy/AdvReac Type Severity Reaction Status Date / Time metformin Allergy Unknown Verified 04/15/23 08:15 penicillin Allergy Intermediate Skin Rash Uncoded 04/15/23 08:15 Home Medications Medication Instructions Recorded Confirmed Type gemfibrozil 600 mg tablet See Rx Instructions PO DIRECTED 02/06/23 04/15/23 History meloxicam 7.5 mg tablet 7.5 mg PO BID 02/06/23 04/15/23 History omeprazole 20 mg capsule,delayed 20 mg PO DAILY 02/20/23 04/15/23 History release albuterol sulfate 90 mcg/actuation 2 puff inhalation QID PRN 02/27/23 04/14/23 Rx aerosol inhaler (Ventolin HFA) shortness of breath or wheezing #8.5 grams omega-3s 350 [id number]-pcb-vyw-other 1 cap PO DAILY 03/20/23 04/15/23 History [id number] oil 600 mg capsule (Fish Oil) nintedanib 150 mg capsule (Ofev) 150 mg PO Q12H #60 caps 03/28/23 04/14/23 Rx Exam Const Nutritional Appearance: cachectic Other: PHYSICAL EXAM GENERAL APPEARANCE: Alert, healthy appearance, oriented, x 3,? in no acute distress HYDRATION: Well hydrated HEAD, EYES, EARS, NECK, THROAT: Head is normocephalic, pupils equal, round, reactive to light and accommodation, ocular movement intact, sclera clear and no jaundice. ?Dentition none b/l hearaids LUNGS: normal respiration/normal chest excursion. clear on right few wheeze left base/otherwise left clear ?HEART: Regular rate and rhythm. no murmurs EXTREMITY: Severe changes consistent with osteoarthritis ABDOMEN: soft and non-tender to palpation.? Normal bowel sounds.? Results Last Vital Signs Temp 36.4 C L 04/15/23 08:34 Pulse 76 04/15/23 08:34 Resp 18 04/15/23 08:34 BP 158/76 H 04/15/23 08:34 Pulse Ox 98 04/15/23 08:34 Time Spent Time spent with Patient: <40 minutes Time was spent: preparing to see the patient(eg.review tests), obtaining and/or reviewing separately otained hiistory, ordering medications,tests, procedures, referring, communicating with other health managed care nurse, indepentently interpreting results, counseling the patient and care coordination
--- NOTE | 2023-04-15 09:17 | W.COLOREPORT ---
Date of service: 04/15/23 Time of Service: 09:17 Colonoscopy Report Date of procedure: 04/15/23 Pre-op diagnosis general: Anemia/polyp Post-op diagnosis procedure note: other (Bernabe diverticula/polyp) Surgeon: Haylee Wright Anesthesia Type: General:No Airway Estimated blood loss (mL): 1 Pathology: other Complications: None Disposition: same day Prep: Miralax/Dulcolax Retraction Time: 10 Procedure Description: After informed consent was obtained the patient was taken to the procedure room and placed in a left decubitous position. Monitors were applied and a time out was done. The patients name, date of , procedure, allergies to medications and metal in their body was reviewed. The patient was then sedated. Once sedated and comfortable a rectal exam was done. External exam was normal. Internal exam revealed a normal sphincter tone and no palpable masses. The prostate normal. The scope was then introduced and retrofelexed. Grade 2 internal hemorrhoids were identified. The scope was then advanced to the cecum without difficulty. The TI and appendiceal orifice were identified. The prep was BBPS 3 in all segments for a total of 9. The scope was then slowly retracted over 10 minutes back into the rectum. Polyps were removed at .75 cm pedunculated polyp in the cecum. This was removed with a cold snare. All specimen is retrieved and no bleeding is noted. He has [place] multiple diverticula that do carry all the way over to the cecum. There is no signs of any bleeding or infection. The scope was removed and the patient was woken up and taken back to Same day surgery in stable condition. The patient tolerated the procedure well and there were no immediate complications. Follow up: The patient does not require any further screening colonoscopies, unless they develop changes in bowel habits or other new gastrointestinal complaints.
--- NOTE | 2023-04-15 09:19 | ENDO_ITS ---
Date of service: 04/15/23 Time of Service: 09:57 Endoscopy Report DATE OF PROCEDURE: 04/15/23 PRE-OP DIAGNOSIS: Anemia/gerd POST-OP DIAGNOSIS: other (Hiatal hernia) SURGEON: Haylee Wright ANESTHESIA TYPE: General:No Airway ESTIMATED BLOOD LOSS: 1 PATHOLOGY: other COMPLICATIONS: None DISPOSITION: same day PROCEDURE DESCRIPTION: After informed consent was obtained the patient was take to the procedure room and placed in a supine position. Monitors were applied and a time out was done. The patients name, date of , procedure type, allergies to medications and metal in their body was reviewed. A bite block was placed and the patient was sedated. Once sedated and comfortable the gastroscope was advanced through the oropharynx which was grossly normal into the esophagus. The proximal and mid- esophagus were normal. In the distal esophagus there was no: Esophageal erosions/varices/diverticula or stricture noted. The scope was advanced into the stomach and through the pylorus into the 3rd portion of the duodenum. The duodenum was noted to be normal. Biopsies were done. The scope was retracted back into the stomach and biopsies were done to rule out H. pylori. There were no ulcers. There is the scope was retroflexed. The cardia and fundus were noted to be normal. There large 5 cm hiatal hernia noted. The scope was retracted back into the esophagus and biopsies were done of the GE junction to rule out Ko's. The Z line was irregular. The GE junction was at 38 cm. The scope was removed, and we proceeded with the colonoscopy
--- NOTE | 2023-04-15 09:28 | STOM_PTH ---
PATIENT: Ethan Carreon JR LOC: [facility] U#:[id number] AGE/SX: 73/M ROOM: RE04/15/[address]: Haylee Wright : 1950 BED: DIS: 04/15/2023 SPEC #: [id number] RECD: 04/15/23 12:27 STATUS: KOURTNEY REQ #: [id number] MELINA: 04/15/23 09:[address]: Haylee Wright DEPT: Surgical Specimen RECD BY: Didi Degroot ENTERED: 04/15/23 12:29 SP TYPE: STOMACH OTHR DR: None Tissues: 1 - BIOPSY BOWEL 2 - BIOPSY BOWEL 3 - STOMACH BIOPSY 4 - STOMACH BIOPSY 5 - ESOPHAGUS BIOPSY 6 - ESOPHAGUS BIOPSY 7 - BIOPSY BOWEL Procedures: GROSS AND MICRO LEVEL 4 Comments: [id number]
[2023-04-15 09:59] VITALS: BP 119/68; PULSE 76; RESP 16; TEMP 36.4; O2SAT 95
--- NOTE | 2023-04-15 10:02 | PDOC.DSDIS_ITS ---
Date of service: 04/15/23 Time of Service: 10:02 Discharge Plan Disposition Patient Disposition: Home Condition: Fair Discharge Details Reason For Visit: Stomach and colon scope Attending Provider: Haylee Wright Primary Care Provider: None,None Home Meds and New Rx's Prescriptions: No Action Fish Oil 350-600 mg capsule 1 cap PO DAILY albuterol sulfate [Ventolin HFA] 90 mcg/actuation HFA aerosol inhaler 2 puff inhalation QID PRN (Reason: shortness of breath or wheezing) Qty: 8.5 3RF Patient Comments: pt. states last time used was couple of weeks omeprazole 20 mg capsule,delayed release(DR/EC) 20 mg PO DAILY Ofev 150 mg capsule 150 mg PO Q12H Qty: 60 11RF gemfibrozil 600 mg tablet See Rx Instructions PO DIRECTED Rx Instructions: orally as directed; meloxicam 7.5 mg tablet 7.5 mg PO BID Patient Comments: pt. reports last dose was over a month ago Discharge Instructions Additional Instructions: [facility] Colonoscopy Post- Op Instructions Instructions for Everyone who is given Anesthesia: For your safety, please do the following for the next twenty-four (24) hours: *Do Not operate a motor vehicle (car, truck, motorcycle, etc.) *Do Not drink alcoholic beverages or use any recreational drugs for the first 24 hours or while taking pain medications. The medications in your body may have a reaction that can be dangerous. *Do Not make any important decisions or sign any important papers. Findings: Follow up: 1. No lifting over 20 pounds or strenuous activity for the first 24 hours after your procedure. After 24 hours there are no restrictions on your activity but you may feel fatigued for a few days. 2. After you arrive home you may have a light meal and return to your normal diet as you can tolerate it without feeling sick to your stomach. 3. You may have a bloated, gaseous feeling in your belly (abdomen) after a colonoscopy. Passing gas and belching will help. Walking or lying down on your left side with your knees flexed may relieve the discomfort. Call the office at [phone] (Office) or [phone] (Hospital) right away if you notice any of the following: a.Vomiting of blood or ?coffee ground stools?. b.Rectal bleeding 1Tbsp, blood clots or continuous bleeding. c.Severe belly (abdominal) pain. d.A hard distended belly (abdomen) and an inability to pass gas. 4. Please don?t expect to have a normal BM (bowel movement) for 2-3 days after your procedure. 5. If there are questions regarding the findings of your procedure, please contact your doctor 6. If you are unable to contact your doctor with a problem, contact the hospital at [phone]. 7. Continue all your regular medications unless directed otherwise. I understand the above instructions and have no questions. Signature of Patient or Adult Escort Name of Responsible Adult Escort Signature of Nurse Date/Time Living With a Hiatal Hernia Lifestyle plays just as important a role as medication Top of Form Bottom of Form Diet It will come as no surprise to those with chronic heartburn that certain foods can pretty much guarantee a flare-up. Many of these food triggers are common to all sufferers. Other problems, meanwhile, are related to the amount of food we eat. What You Eat What they found was that there was as much as a two- to three-fold increase in the?risk of symptoms ?when people ate the following types of foods: * Fatty foods * Sugary foods * Spicy foods * Fried foods * Peppermint tea * Caffeine * Sour foods * [place] and tomatoes * Alcohol and tobacco To this end, there are certain foods you need to avoid if you have active symptoms or are prone to recurrence. They include red meat, processed foods, mayonnaise, butter, margarine, tomato-based sauces, chocolate, coffee, caffeinated tea, carbonated drinks, citrus and citrus juices, and whole-fat dairy products. In their place, foods like lean chicken, fish, vegetables, grains, and low-fat dairy can provide you the proteins, fats, and carbohydrates you need without triggering the overproduction of stomach acid. Alcohol ?should also be avoided and not so much because it triggers acid production. Rather, alcohol has a corrosive effect on the esophagus and greatly amplifies the symptoms of reflux, in some cases tripling the risk of severe heartburn and chest pain.2? Similar results have been seen in people who?overuse salt . How You Eat? When it comes to?acid reflux ,?how?you?eat plays almost as important a role in the appearance of symptoms as?what?you?eat. This is especially true if the s ource of the problem is a?hiatal hernia . With a hiatal hernia, the protrusion of the stomach into the chest cavity can alter the alignment of the LES, the valve that protects your esophagus from the contents of your stomach.?As a result, food and acid can leak through this otherwise protective gateway?often profusely. To remedy this, you need to mindful of the position of your stomach as you eat. You also need to ensure that you don't overtax the stomach and that food is able to move through the digestive tract without complication. To achieve this: * Always sit up straight in a chair while eating.3? This ensures that your stomach is in the best alignment to receive food. By contrast, slouching (say,?on the sofa) not only places your stomach in a more horizontal position, it compresses the junction between the stomach and esophagus, promoting backflow.? * Eat smaller, more frequent meals.3??And, more importantly perhaps, do not skip meals. Doing so will only lead you to overeat. * Always eat at a table.?The thing about nibbling on the run or munching in front the TV is that you can end up?mindlessly putting food into your mouth?without even realizing it. Sitting a table with prepared portions helps avoid this. * Take smaller bites and chew longer.3??The rationale is simple: The more your food is pulverized before swallowing, the less the stomach has to do to digest it. This translates to less stomach acid and less acid reflux. * Sit upright for at least an hour after eating.?It is best to do so in a solid but comfortable chair. Also, avoid bending or lying down immediately after eating. * Avoid eating three hours before bedtime.3??This includes snacks. Sleeping with an emptied stomach means there will be far less chance of [id number]-night reflux. Weight Loss As an independent risk factor, obesity increases the risk of heartburn in people with hiatal hernias exerting excessive pressure on the abdominal wall. This, in turn, compresses the stomach against the diaphragm, not only altering its position but causing it bulge even further into the chest cavity. If you are either overweight or obese, you need to include weight loss an integral part of your treatment plan. The program should ideally be overseen by a doctor or infection control manager experienced in?metabolic syndrome . Among the facets of the plan: * Reducing your body mass index (BMI)?from above 30 (obese) to below 25 (normal) can half your risk of acid reflux.4? * A low-fat, high-fiber diet?is vargas to both weight loss and the normalization of your digestive function. The low-fat diet shouldn't necessarily be low-carb, but rather contain complex carbohydrates that have less impact your blood sugar. A diet high in soluble fiber?can help treat constipation and alleviate the straining that can promote herniation. * Drinking at least eight glasses of water per day?can further relieve constipation while diluting the concentrations of acid in your stomach. If you are overweight or obese, water?intake should be even greater. A simple rule of thumb is to drink half your body weight in ounces of water. For example, if you weight 200 pounds, you should drink no less than 100 ounces of water per day (or roughly three-quarters of a gallon). * Take a reasoned approach to exercise.?An informed fitness program should always start easily (with maybe 10 to 15 minutes of exercise performed thrice weekly) and gradually increase in both intensity and duration. The aim of the program is to create a lifetime habit and avoid burnout. To this end, consider working with a health and safety trainer to get started and/or to adjust your program as you build endurance and strength. Everyday Living When it comes to hiatal hernia symptoms, self-care can go a long way in reducing them?and?preventing them from returning. Work to turn these suggestions into habits: * Relax.?While stress doesn't necessarily cause acid reflux, an increasing? body of evidence z ?has shown that stress can impact the way in which our body reacts to reflux symptoms. So, rather than?tying yourself in a knot, trying sitting calming and engaging in deep breathing exercises or meditation. Find someplace quiet where you can sit comfortably until the symptoms pass. * Loosen your belt and remove tight clothing.?Ultimately, anything that constricts the abdomen can trigger symptoms as you move about and jostle the contents of your stomach. Give yourself a break and avoid cinched waistlines or anything that places direct stress on the stomach. * Take a fiber supplement.?If you are suffering from chronic constipation, a daily?fiber supplement ?can help improve your regularity.5? A couple of tablespoons of mineral oil can also help ease hardened stools during acute bouts. * Elevate the head of your bed 4 to 8 inches. This is especially useful for people who are overweight or have the?symptoms of GERD . Aligning the stomach in an ascending (rather than flat) position significantly lowers the risk of gastric backflow related to hiatal hernias. * Avoid heavy lifting.?If you have been diagnosed with a large hernia, lifting heavy objects will only make things?worse. If you have to move something heavy, use a cart or trolley, or, better yet, ask someone else to do it. You may also need to alter your workout routine if you use heavy weights or engage in exercises that place excessive stress on the stomach muscles (including weighted squats or crunches). Finally,?stop smoking.6??While smoking doesn't cause acid reflux, it can affect? gastric motility ?and the way in which food moves through the esophagus. Smoking can also dull the responsiveness your LES and promote?dysphagia https:/ ?(swallowing difficult). These effects are long-lasting and may become permanent in heavy smokers, turning even a small hernia into a source of ongoing grief. Starting a Fiber Supplement Dietary fiber is a plant-based nutrient that's necessary for the healthy functioning of your digestive system.? ?In addition to helping your bowels stay regular, it's also useful for maintaining optimum cholesterol and blood sugar levels as well as a healthy weight. Although it's technically a carbohydrate, it's not the kind that can be broken down into digestible sugars by the body. Instead, fiber travels through your digestive system while bulking and softening your stool?making it easier to pass. It also helps absorb excess blood sugars and cholesterols. The [place] [employer] recommends 30 grams (g) of fiber a day for men, and 25g a day for women. Fiber is found in fruits, vegetables, legumes, and whole grains, and is an important part of the diet. But because many people find it difficult to eat the recommended quantity of 25 to 38 g per day, fiber supplementation can be extremely helpful to ease the symptoms of a variety of digestive discomforts like diarrhea and constipation. Today, many fiber supplements are found on the market containing one of three active ingredients: psyllium, methylcellulose, and polycarbophil Possible Side Effects The potential side effects of fiber supplementation include: * Gas and gas pain * Abdominal bloating * Lowered blood sugar 1 * Diarrhea or constipation (if taken in excess) * Weight loss * Lessened effectiveness of medications and vitamins (if taken at the same time as fiber) -Side effects can sometimes be minimized by starting with a small amount and slowly increasing until stools become softer and more frequent. Because of the way fiber supplements bulk up in the intestinal tract and absorb surrounding materials, they can interfere with the body's ability to assimilate medications, vitamins, and nutrients. For that reason, it's important to consume fiber supplements at least one hour after, or two hours before, taking medications and important vitamins. This can sometimes be minimized by starting with a small amount and slowly increasing until stools become softer and more frequent. Dosage and Preparation Fiber supplements often come in the form of powders meant to be mixed with water or another liquid. They also are available in capsule form, or as additives to foods like crackers, cookies, cereals, and bars. Dosage will vary based on the product and your desired effects. If you are healthy, it's generally recommended to start with a low dose of fiber and build up until you've reached optimum total daily fiber intake?roughly 25g for women and 38g for men?which should also include your dietary sources of fiber What to Look For When shopping for fiber, look closely at the ingredients to discover which form of fiber is used in each commercial brand. Also, if you're avoiding added sugar, salt, flavorings, or dyes, check the label for these common additives. If you're just starting with a fiber supplement, use a low dose and drink plenty of water when you take the supplement and throughout the day.? If you are not used to eating a high fiber diet/taking a supplement, start with about half of the recommended dose.? Always remember to take fiber with 8oz of water.? Continue at this dose for about 2-3 weeks, and then slowly increase up to the full dose daily.? Fiber is a natural product- you can increase the dose to 2-4 times a day as needed to have a formed BM without straining. Increase the dose slowly until you reach either the desired total intake or a specific effect. Psyllium Psyllium is made from the seeds of a plant in the Plantago genus and contains about 70% soluble fiber and 30% insoluble fiber. It helps the stool absorb water and bulks it up, making?it easier to pass. It also breaks down in the gut (a process called fermentation) and becomes a food source for the good bacteria that reside there. Psyllium is used for treating constipation, irritable bowel syndrome (IBS), and diverticulosis. In addition, psyllium may lower cholesterol ?levels and provide some protection from heart disease.? On the downside, psyllium may cause intestinal gas and contains a small number of calories (roughly 20 calories per tablespoon). Psyllium is sold under the brand names Metamucil, Fiberall, Hydrocil, Konsyl, Perdiem, and Serutan. Methylcellulose Methylcellulose is a non-allergenic and non-fermentable fiber created from the cell solis of plants. Instead of being absorbed by the intestinal tract, methylcellulose pulls in water to create a softer stool. Methylcellulose is often used to treat constipation, diverticulosis, IBS, and some causes of diarrhea. Because it does not ferment, it is less likely than psyllium to cause intestinal gas; however, methylcellulose does not feed healthy gut bacteria the way psyllium does. It can be used intermediate manager but it should be noted that, because it can interfere with absorption, methylcellulose should be taken apart from any prescribed medications. Methylcellulose is sold under the brand name Citrucel. What are the best dietary sources of fiber? Whether or not you choose to supplement with fiber, it's still important to include a variety of high-fiber foods in your diet, such as: * Fresh fruit (pears, apples, strawberries, bananas) * Fresh vegetables (broccoli, Brussel sprouts, beets, and carrots) * Legumes (lentils, split peas, kidney beans, chickpeas, black beans, mcdonald beans) * Whole Grains (quinoa, oats, brown rice, millet, barley) * Other food sources of fiber (popcorn, sweet potatoes, and lucy) What time of day is best? Different manufacturers may have varying recommendations on when and how frequently to take fiber supplements. You may want to divide your daily dose into two or three portions to reduce bloating and gas that could occur when taking a large dose all at once. To avoid malabsorption, it's important to take medications or vitamins either one hour before, or two hours after, taking fiber supplements. If using a powdered form of fiber, be sure to dissolve it well. No matter what kind of fiber supplement you are using, be sure to drink plenty of water, at least 8ox, unless you are on fluid restrictions. Activity:: see above Diet:: see aboe Discharge Orders Discharge Orders: Discharge Order (Routine); Ordered 04/15/23 Ordered By: Haylee Wright DS: Diagnosis Discharge Diagnosis (1) Anemia: (2) Abdominal mass, left lower quadrant: Status: Acute (3) GERD (gastroesophageal reflux disease): Status: Chronic (4) IPF (idiopathic pulmonary fibrosis): Status: Acute (5) Low back pain: Status: Acute (6) Hypertensive disorder: (7) Hyperlipidemia: (8) Gout: (9) Type 2 diabetes mellitus: (10) Osteoarthritis: (11) History of esophageal reflux: (12) Spinal stenosis: (13) Peptic ulcer disease: (14) ILD (interstitial lung disease): (15) Diverticula of colon: Status: Acute Asessment and Plan: The patient is seen and examined after their colonoscopy.? The patient has been able to pass gas.? They are not having abdominal pain.? They have been able to tolerate liquids and a snack.? They do not have any nausea or vomiting.? They are not having any chest pain or shortness of breath.??? They are not having any rectal bleeding. Their vital signs have been stable-see nursing notes. We discussed findings during their colonoscopy, and any biopsies that were done/polyps that were removed. The patient will be sent a letter with any biopsy results, and when to repeat the colonoscopy.-see discharge instructions. Patient was given explicit instructions to follow-up regarding colonoscopy-refer to discharge instructions.? We reviewed resumption of medications. Patient verbalized understanding and discharged in stable and satisfactory condition- See nursing notes. (16) Hiatal hernia with GERD: Status: Acute
--- NOTE | 2023-04-15 10:17 | PDOC.DSDIS_ITS ---
Date of service: 04/15/23 Time of Service: 10:19 Discharge Plan Disposition Patient Disposition: Home Condition: Fair Discharge Details Reason For Visit: Stomach and colon scope Attending Provider: Haylee Wright Primary Care Provider: None,None Home Meds and New Rx's Prescriptions: No Action Fish Oil 350-600 mg capsule 1 cap PO DAILY albuterol sulfate [Ventolin HFA] 90 mcg/actuation HFA aerosol inhaler 2 puff inhalation QID PRN (Reason: shortness of breath or wheezing) Qty: 8.5 3RF Patient Comments: pt. states last time used was couple of weeks omeprazole 20 mg capsule,delayed release(DR/EC) 20 mg PO DAILY Ofev 150 mg capsule 150 mg PO Q12H Qty: 60 11RF gemfibrozil 600 mg tablet See Rx Instructions PO DIRECTED Rx Instructions: orally as directed; meloxicam 7.5 mg tablet 7.5 mg PO BID Patient Comments: pt. reports last dose was over a month ago Discharge Instructions Additional Instructions: [facility] Colonoscopy Post- Op Instructions Instructions for Everyone who is given Anesthesia: For your safety, please do the following for the next twenty-four (24) hours: *Do Not operate a motor vehicle (car, truck, motorcycle, etc.) *Do Not drink alcoholic beverages or use any recreational drugs for the first 24 hours or while taking pain medications. The medications in your body may have a reaction that can be dangerous. *Do Not make any important decisions or sign any important papers. Findings: Colon polyp Severe diverticula -make sure you are moving your bowels on a regular basis and you are not straining to go to the bathroom. If you have any problems with constipation or straining then it is recommended you start a fiber supplement daily such as Metamucil Large hiatal hernia: Continue with lifestyle modifications: no alcohol, tobacco products, Aspirin or NSAID's (ibuprofen, Motrin, Naprosyn, aleve, etc), soda pop/any carbonated beverages, caffeine (including tea & chocolate), and acidic foods, (tomatoes, citrus, onions, peppermints) spicy or fried/fatty foods. Do not lie down for 30 minutes after eating, and do not eat 2 hours prior to bedtime. Avoid wearing tight fitting clothing/ belts Continue omeprazol. 1. No lifting over 20 pounds or strenuous activity for the first 24 hours after your procedure. After 24 hours there are no restrictions on your activity but you may feel fatigued for a few days. 2. After you arrive home you may have a light meal and return to your normal diet as you can tolerate it without feeling sick to your stomach. 3. You may have a bloated, gaseous feeling in your belly (abdomen) after a colonoscopy. Passing gas and belching will help. Walking or lying down on your left side with your knees flexed may relieve the discomfort. Call the office at [phone] (Office) or [phone] (Hospital) right away if you notice any of the following: a.Vomiting of blood or ?coffee ground stools?. b.Rectal bleeding 1Tbsp, blood clots or continuous bleeding. c.Severe belly (abdominal) pain. d.A hard distended belly (abdomen) and an inability to pass gas. 4. Please don?t expect to have a normal BM (bowel movement) for 2-3 days after your procedure. 5. If there are questions regarding the findings of your procedure, please contact your doctor 6. If you are unable to contact your doctor with a problem, contact the hospital at [phone]. 7. Continue all your regular medications unless directed otherwise. I understand the above instructions and have no questions. Signature of Patient or Adult Escort Name of Responsible Adult Escort Signature of Nurse Date/Time Living With a Hiatal Hernia Lifestyle plays just as important a role as medication Top of Form Bottom of Form Diet It will come as no surprise to those with chronic heartburn that certain foods can pretty much guarantee a flare-up. Many of these food triggers are common to all sufferers. Other problems, meanwhile, are related to the amount of food we eat. What You Eat What they found was that there was as much as a two- to three-fold increase in the?risk of symptoms ?when people ate the following types of foods: * Fatty foods * Sugary foods * Spicy foods * Fried foods * Peppermint tea * Caffeine * Sour foods * Wayne and tomatoes * Alcohol and tobacco To this end, there are certain foods you need to avoid if you have active symptoms or are prone to recurrence. They include red meat, processed foods, mayonnaise, butter, margarine, tomato-based sauces, chocolate, coffee, caffeinated tea, carbonated drinks, citrus and citrus juices, and whole-fat dairy products. In their place, foods like lean chicken, fish, vegetables, grains, and low-fat dairy can provide you the proteins, fats, and carbohydrates you need without triggering the overproduction of stomach acid. Alcohol ?should also be avoided and not so much because it triggers acid production. Rather, alcohol has a corrosive effect on the esophagus and greatly amplifies the symptoms of reflux, in some cases tripling the risk of severe heartburn and chest pain.2? Similar results have been seen in people who?overuse salt . How You Eat? When it comes to?acid reflux ,?how?you?eat plays almost as important a role in the appearance of symptoms as?what?you?eat. This is especially true if the source of the problem is a?hiatal hernia . With a hiatal hernia, the protrusion of the stomach into the chest cavity can alter the alignment of the LES, the valve that protects your esophagus from the contents of your stomach.?As a result, food and acid can leak through this otherwise protective gateway?often profusely. To remedy this, you need to mindful of the position of your stomach as you eat. You also need to ensure that you don't overtax the stomach and that food is able to move through the digestive tract without complication. To achieve this: * Always sit up straight in a chair while eating.3? This ensures that your stomach is in the best alignment to receive food. By contrast, slouching (say,?on the sofa) not only places your stomach in a more horizontal position, it compresses the junction between the stomach and esophagus, promoting backflow.? * Eat smaller, more frequent meals.3??And, more importantly perhaps, do not skip meals. Doing so will only lead you to overeat. * Always eat at a table.?The thing about nibbling on the run or munching in front the TV is that you can end up?mindlessly putting food into your mouth?without even realizing it. Sitting a table with prepared portions helps avoid this. * Take smaller bites and chew longer.3??The rationale is simple: The more your food is pulverized before swallowing, the less the stomach has to do to digest it. This translates to less stomach acid and less acid reflux. * Sit upright for at least an hour after eating.?It is best to do so in a solid but comfortable chair. Also, avoid bending or lying down immediately after eating. * Avoid eating three hours before bedtime.3??This includes snacks. Sleeping with an emptied stomach means there will be far less chance of sckzkr-ay-ueq-night reflux. Weight Loss As an independent risk factor, obesity increases the risk of heartburn in people with hiatal hernias exerting excessive pressure on the abdominal wall. This, in turn, compresses the stomach against the diaphragm, not only altering its position but causing it bulge even further into the chest cavity. If you are either overweight or obese, you need to include weight loss an integral part of your treatment plan. The program should ideally be overseen by a doctor or air compressor mechanic experienced in?metabolic syndrome . Among the facets of the plan: * Reducing your body mass index (BMI)?from above 30 (obese) to below 25 (normal) can half your risk of acid reflux.4? * A low-fat, high-fiber diet?is vargas to both weight loss and the normalization of your digestive function. The low-fat diet shouldn't necessarily be low-carb, but rather contain complex carbohydrates that have less impact your blood sugar. A diet high in soluble fiber?can help treat constipation and alleviate the straining that can promote herniation. * Drinking at least eight glasses of water per day?can further relieve constipation while diluting the concentrations of acid in your stomach. If you are overweight or obese, water?intake should be even greater. A simple rule of thumb is to drink half your body weight in ounces of water. For example, if you weight 200 pounds, you should drink no less than 100 ounces of water per day (or roughly three-quarters of a gallon). * Take a reasoned approach to exercise.?An informed fitness program should always start easily (with maybe 10 to 15 minutes of exercise performed thrice weekly) and gradually increase in both intensity and duration. The aim of the program is to create a lifetime habit and avoid burnout. To this end, consider working with a personal fitness trainer to get started and/or to adjust your program as you build endurance and strength. Everyday Living When it comes to hiatal hernia symptoms, self-care can go a long way in reducing them?and?preventing them from returning. Work to turn these suggestions into habits: * Relax.?While stress doesn't necessarily cause acid reflux, an increasing? body of evidence z ?has shown that stress can impact the way in which our body reacts to reflux symptoms. So, rather than?tying yourself in a knot, trying sitting calming and engaging in deep breathing exercises or medi tation. Find someplace quiet where you can sit comfortably until the symptoms pass. * Loosen your belt and remove tight clothing.?Ultimately, anything that constricts the abdomen can trigger symptoms as you move about and jostle the contents of your stomach. Give yourself a break and avoid cinched waistlines or anything that places direct stress on the stomach. * Take a fiber supplement.?If you are suffering from chronic constipation, a daily?fiber supplement ?can help improve your regularity.5? A couple of tablespoons of mineral oil can also help ease hardened stools during acute bouts. * Elevate the head of your bed 4 to 8 inches. This is especially useful for people who are overweight or have the?symptoms of GERD . Aligning the stomach in an ascending (rather than flat) position significantly lowers the risk of gastric backflow related to hiatal hernias. * Avoid heavy lifting.?If you have been diagnosed with a large hernia, lift ing heavy objects will only make things?worse. If you have to move something heavy, use a cart or trolley, or, better yet, ask someone else to do it. You may also need to alter your workout routine if you use heavy weights or engage in exercises that place excessive stress on the stomach muscles (including weighted squats or crunches). Finally,?stop smoking.6??While smoking doesn't cause acid reflux, it can affect? gastric motility ?and the way in which food moves through the esophagus. Smoking can also dull the responsiveness your LES and promote?dysphagia https:/ ?(swallowing difficult). These effects are long-lasting and may become permanent in heavy smokers, turning even a small hernia into a source of ongoing grief. Starting a Fiber Supplement Dietary fiber is a plant-based nutrient that's necessary for the healthy functioning of your digestive system.? ?In addition to helping your bowels stay regular, it's also useful for maintaining optimum cholesterol and blood sugar levels as well as a healthy weight. Although it's technically a carbohydrate, it's not the kind that can be broken down into digestible sugars by the body. Instead, fiber travels through your digestive system while bulking and softening your stool?making it easier to pass. It also helps absorb excess blood sugars and cholesterols. The [place] [employer] recommends 30 grams (g) of fiber a day for men, and 25g a day for women. Fiber is found in fruits, vegetables, legumes, and whole grains, and is an important part of the diet. But because many people find it difficult to eat the recommended quantity of 25 to 38 g per day, fiber supplementation can be extremely helpful to ease the symptoms of a variety of digestive discomforts like diarrhea and constipation. Today, many fiber supplements are found on the market containing one of three active ingredients: psyllium, methylcellulose, and polycarbophil Possible Side Effects The potential side effects of fiber supplementation include: * Gas and gas pain * Abdominal bloating * Lowered blood sugar 1 * Diarrhea or constipation (if taken in excess) * Weight loss * Lessened effectiveness of medications and vitamins (if taken at the same time as fiber) -Side effects can sometimes be minimized by starting with a small amount and slowly increasing until stools become softer and more frequent. Because of the way fiber supplements bulk up in the intestinal tract and absorb surrounding materials, they can interfere with the body's ability to assimilate medications, vitamins, and nutrients. For that reason, it's important to consume fiber supplements at least one hour after, or two hours before, taking medications and important vitamins. This can sometimes be minimized by starting with a small amount and slowly increasing until stools become softer and more frequent. Dosage and Preparation Fiber supplements often come in the form of powders meant to be mixed with water or another liquid. They also are available in capsule form, or as additives to foods like crackers, cookies, cereals, and bars. Dosage will vary based on the product and your desired effects. If you are healthy, it's generally recommended to start with a low dose of fiber and build up until you've reached optimum total daily fiber intake?roughly 25g for women and 38g for men?which should also include your dietary sources of fiber What to Look For When shopping for fiber, look closely at the ingredients to discover which form of fiber is used in each commercial brand. Also, if you're avoiding added sugar, salt, flavorings, or dyes, check the label for these common additives. If you're just starting with a fiber supplement, use a low dose and drink plenty of water when you take the supplement and throughout the day.? If you are not used to eating a high fiber diet/taking a supplement, start with about half of the recommended dose.? Always remember to take fiber with 8oz of water.? Continue at this dose for about 2-3 weeks, and then slowly increase up to the full dose daily.? Fiber is a natural product- you can increase the dose to 2-4 times a day as needed to have a formed BM without straining. Increase the dose slowly until you reach either the desired total intake or a specific effect. Psyllium Psyllium is made from the seeds of a plant in the Plantago genus and contains about 70% soluble fiber and 30% insoluble fiber. It helps the stool absorb water and bulks it up, making?it easier to pass. It also breaks down in the gut (a process called fermentation) and becomes a food source for the good bacteria that reside there. Psyllium is used for treating constipation, irritable bowel syndrome (IBS), and diverticulosis. In addition, psyllium may lower cholesterol ?levels and provide some protection from heart disease.? On the downside, psyllium may cause intestinal gas and contains a small number of calories (roughly 20 calories per tablespoon). Psyllium is sold under the brand names Metamucil, Fiberall, Hydrocil, Konsyl, Perdiem, and Serutan. Methylcellulose Methylcellulose is a non-allergenic and non-fermentable fiber created from the cell solis of plants. Instead of being absorbed by the intestinal tract, methylcellulose pulls in water to create a softer stool. Methylcellulose is often used to treat constipation, diverticulosis, IBS, and some causes of diarrhea. Because it does not ferment, it is less likely than psyllium to cause intestinal gas; however, methylcellulose does not feed healthy gut bacteria the way psyllium does. It can be used mcc but it should be noted that, because it can interfere with absorption, methylcellulose should be taken apart from any prescribed medications. Methylcellulose is sold under the brand name Citrucel. What are the best dietary sources of fiber? Whether or not you choose to supplement with fiber, it's still important to include a variety of high-fiber foods in your diet, such as: * Fresh fruit (pears, apples, strawberries, bananas) * Fresh vegetables (broccoli, Brussel sprouts, beets, and carrots) * Legumes (lentils, split peas, kidney beans, chickpeas, black beans, mcdonald beans) * Whole Grains (quinoa, oats, brown rice, millet, barley) * Other food sources of fiber (popcorn, sweet potatoes, and lucy) What time of day is best? Different manufacturers may have varying recommendations on when and how frequently to take fiber supplements. You may want to divide your daily dose into two or three portions to reduce bloating and gas that could occur when taking a large dose all at once. To avoid malabsorption, it's important to take medications or vitamins either one hour before, or two hours after, taking fiber supplements. If using a powdered form of fiber, be sure to dissolve it well. No matter what kind of fiber supplement you are using, be sure to drink plenty of water, at least 8ox, unless you are on fluid restrictions. Activity:: see above Diet:: see aboe Discharge Orders Discharge Orders: Discharge Order (Routine); Ordered 04/15/23 Ordered By: Haylee Wright DS: Diagnosis Discharge Diagnosis (1) Anemia: (2) Abdominal mass, left lower quadrant: Status: Acute (3) GERD (gastroesophageal reflux disease): Status: Chronic (4) IPF (idiopathic pulmonary fibrosis): Status: Acute (5) Low back pain: Status: Acute (6) Hypertensive disorder: (7) Hyperlipidemia: (8) Gout: (9) Type 2 diabetes mellitus: (10) Osteoarthritis: (11) History of esophageal reflux: (12) Spinal stenosis: (13) Peptic ulcer disease: (14) ILD (interstitial lung disease): (15) Diverticula of colon: Status: Acute (16) Hiatal hernia with GERD: Status: Acute Asessment and Plan: The patient is seen and examined after their colonoscopy.? The patient has been able to pass gas.? They are not having abdominal pain.? They have been able to tolerate liquids and a snack.? They do not have any nausea or vomiting.? They are not having any chest pain or shortness of breath.??? They are not having any rectal bleeding. Their vital signs have been stable-see nursing notes. We discussed findings during their colonoscopy, and any biopsies that were done/polyps that were removed. The patient will be sent a letter with any biopsy results, and when to repeat the colonoscopy.-see discharge instructions. Patient was given explicit instructions to follow-up regarding colonoscopy-refer to discharge instructions.? We reviewed resumption of medications. Patient verbalized understanding and discharged in stable and satisfactory condition- See nursing notes.
[2023-04-15 10:40] VITALS: BP 150/75; PULSE 65; RESP 16; TEMP 36.1; O2SAT 98
--- NOTE | 2023-04-15 11:02 | PDOC.DSDIS_ITS ---
Date of service: 04/15/23 Time of Service: 11:03 Discharge Plan Disposition Patient Disposition: Home Condition: Fair Discharge Details Reason For Visit: Stomach and colon scope Attending Provider: Haylee Wright Primary Care Provider: None,None Home Meds and New Rx's Prescriptions: New Metamucil Sugar-Free (aspart) 3.4 gram/5.8 gram powder [id number] g PO DAILY Qty: 425 12RF Rx Instructions: start once a day. May need to work up to twice a day No Action Fish Oil 350-600 mg capsule 1 cap PO DAILY albuterol sulfate [Ventolin HFA] 90 mcg/actuation HFA aerosol inhaler 2 puff inhalation QID PRN (Reason: shortness of breath or wheezing) Qty: 8.5 3RF Patient Comments: pt. states last time used was couple of weeks omeprazole 20 mg capsule,delayed release(DR/EC) 20 mg PO DAILY Ofev 150 mg capsule 150 mg PO Q12H Qty: 60 11RF gemfibrozil 600 mg tablet See Rx Instructions PO DIRECTED Rx Instructions: orally as directed; meloxicam 7.5 mg tablet 7.5 mg PO BID Patient Comments: pt. reports last dose was over a month ago Discharge Instructions Additional Instructions: [facility] Colonoscopy Post- Op Instructions Instructions for Everyone who is given Anesthesia: For your safety, please do the following for the next twenty-four (24) hours: *Do Not operate a motor vehicle (car, truck, motorcycle, etc.) *Do Not drink alcoholic beverages or use any recreational drugs for the first 24 hours or while taking pain medications. The medications in your body may have a reaction that can be dangerous. *Do Not make any important decisions or sign any important papers. Findings: Colon polyp Severe diverticula -make sure you are moving your bowels on a regular basis and you are not straining to go to the bathroom. If you have any problems with constipation or straining then it is recommended you start a fiber supplement daily such as Metamucil Large hiatal hernia: Continue with lifestyle modifications: no alcohol, tobacco products, Aspirin or NSAID's (ibuprofen, Motrin, Naprosyn, aleve, etc), soda pop/any carbonated beverages, caffeine (including tea & chocolate), and acidic foods, (tomatoes, citrus, onions, peppermints) spicy or fried/fatty foods. Do not lie down for 30 minutes after eating, and do not eat 2 hours prior to bedtime. Avoid wearing tight fitting clothing/ belts Continue omeprazol. 1. No lifting over 20 pounds or strenuous activity for the first 24 hours after your procedure. After 24 hours there are no restrictions on your activity but you may feel fatigued for a few days. 2. After you arrive home you may have a light meal and return to your normal diet as you can tolerate it without feeling sick to your stomach. 3. You may have a bloated, gaseous feeling in your belly (abdomen) after a colonoscopy. Passing gas and belching will help. Walking or lying down on your left side with your knees flexed may relieve the discomfort. Call the office at [phone] (Office) or [phone] (Hospital) right away if you notice any of the following: a.Vomiting of blood or ?coffee ground stools?. b.Rectal bleeding 1Tbsp, blood clots or continuous bleeding. c.Severe belly (abdominal) pain. d.A hard distended belly (abdomen) and an inability to pass gas. 4. Please don?t expect to have a normal BM (bowel movement) for 2-3 days after your procedure. 5. If there are questions regarding the findings of your procedure, please contact your doctor 6. If you are unable to contact your doctor with a problem, contact the hospital at [phone]. 7. Continue all your regular medications unless directed otherwise. I understand the above instructions and have no questions. Signature of Patient or Adult Escort Name of Responsible Adult Escort Signature of Nurse Date/Time Living With a Hiatal Hernia Lifestyle plays just as important a role as medication Top of Form Bottom of Form Diet It will come as no surprise to those with chronic heartburn that certain foods can pretty much guarantee a flare-up. Many of these food triggers are common to all sufferers. Other problems, meanwhile, are related to the amount of food we eat. What You Eat What they found was that there was as much as a two- to three-fold increase in the?risk of symptoms ?when people ate the following types of foods: * Fatty foods * Sugary foods * Spicy foods * Fried foods * Peppermint tea * Caffeine * Sour foods * [place] and tomatoes * Alcohol and tobacco To this end, there are certain foods you need to avoid if you have active symptoms or are prone to recurrence. They include red meat, processed foods, mayonnaise, butter, margarine, tomato-based sauces, chocolate, coffee, caffeinated tea, carbonated drinks, citrus and citrus juices, and whole-fat dairy products. In their place, foods like lean chicken, fish, vegetables, grains, and low-fat dairy can provide you the proteins, fats, and carbohydrates you need without triggering the overproduction of stomach acid. Alcohol ?should also be avoided and not so much because it triggers acid production. Rather, alcohol has a corrosive effect on the esophagus and greatly amplifies the symptoms of reflux, in some cases tripling the risk of severe heartburn and chest pain.2? Similar results have been seen in people who?overuse salt . How You Eat? When it comes to?acid reflux ,?how?you?eat plays almost as important a role in the appearance of symptoms as?what?you?eat. This is especially true if the source of the problem is a?hiatal hernia . With a hiatal hernia, the protrusion of the stomach into the chest cavity can alter the alignment of the LES, the valve that protects your esophagus from the contents of your stomach.?As a result, food and acid can leak through this otherwise protective gateway?often profusely. To remedy this, you need to mindful of the position of your stomach as you eat. You also need to ensure that you don't overtax the stomach and that food is able to move through the digestive tract without complication. To achieve this: * Always sit up straight in a chair while eating.3? This ensures that your stomach is in the best alignment to receive food. By contrast, slouching (say,?on the sofa) not only places your stomach in a more horizontal position, it compresses the junction between the stomach and esophagus, promoting backflow.? * Eat smaller, more frequent meals.3??And, more importantly perhaps, do not skip meals. Doing so will only lead you to overeat. * Always eat at a table.?The thing about nibbling on the run or munching in front the TV is that you can end up?mindlessly putting food into your mouth?without even realizing it. Sitting a table with prepared portions helps avoid this. * Take smaller bites and chew longer.3??The rationale is simple: The more your food is pulverized before swallowing, the less the stomach has to do to digest it. This translates to less stomach acid and less acid reflux. * Sit upright for at least an hour after eating.?It is best to do so in a solid but comfortable chair. Also, avoid bending or lying down immediately after eating. * Avoid eating three hours before bedtime.3??This includes snacks. Sleeping with an emptied stomach means there will be far less chance of nkqyew-bx-qeg-night reflux. Weight Loss As an independent risk factor, obesity increases the risk of heartburn in people with hiatal hernias exerting excessive pressure on the abdominal wall. This, in turn, compresses the stomach against the diaphragm, not only altering its position but causing it bulge even further into the chest cavity. If you are either overweight or obese, you need to include weight loss an integral part of your treatment plan. The program should ideally be overseen by a doctor or teacher dramatics experienced in?metabolic syndrome . Among the facets of the plan: * Reducing your body mass index (BMI)?from above 30 (obese) to below 25 (normal) can half your risk of acid reflux.4? * A low-fat, high-fiber diet?is vargas to both weight loss and the normalization of your digestive function. The low-fat diet shouldn't necessarily be low-carb, but rather contain complex carbohydrates that have less impact your blood sugar. A diet high in soluble fiber?can help treat constipation and alleviate the straining that can promote herniation. * Drinking at least eight glasses of water per day?can further relieve constipat ion while diluting the concentrations of acid in your stomach. If you are overweight or obese, water?intake should be even greater. A simple rule of thumb is to drink half your body weight in ounces of water. For example, if you weight 200 pounds, you should drink no less than 100 ounces of water per day (or roughly three-quarters of a gallon). * Take a reasoned approach to exercise.?An informed fitness program should always start easily (with maybe 10 to 15 minutes of exercise performed thrice weekly) and gradually increase in both intensity and duration. The aim of the program is to create a lifetime habit and avoid burnout. To this end, consider working with a net trainer to get started and/or to adjust your program as you build endurance and strength. Everyday Living When it comes to hiatal hernia symptoms, self-care can go a long way in reducing them?and?preventing them from returning. Work to turn these suggestions into habits: * Relax.?While stress doesn't necessarily cause acid reflux, an increasing? body of evidence z ?has shown that stress can impact the way in which our body reacts to reflux symptoms. So, rather than?tying yourself in a knot, trying sitting calming and engaging in deep breathing exercises or meditation. Find someplace quiet where you can sit comfortably until the symptoms pass. * Loosen your belt and remove tight clothing.?Ultimately, anything that constricts the abdomen can trigger symptoms as you move about and jostle the contents of your stomach. Give yourself a break and avoid cinched waistlines or anything that places direct stress on the stomach. * Take a fiber supplement.?If you are suffering from chronic constipation, a daily?fiber supplement ?can help improve your regularity.5? A couple of tablespoons of mineral oil can also help ease hardened stools during acute bouts. * Elevate the head of your bed 4 to 8 inches. This is especially useful for people who are overweight or have the?symptoms of GERD . Aligning the stomach in an ascending (rather than flat) position significantly lowers the risk of gastric backflow related to hiatal hernias. * Avoid heavy lifting.?If you have been diagnosed with a large hernia, lifting heavy objects will only make things?worse. If you have to move something heavy, use a cart or trolley, or, better yet, ask someone else to do it. You may also need to alter your workout routine if you use heavy weights or engage in exercises that place excessive stress on the stomach muscles (including weighted squats or crunches). Finally,?stop smoking.6??While smoking doesn't cause acid reflux, it can affect? gastric motility ?and the way in which food moves through the esophagus. Smoking can also dull the responsiveness your LES and promote?dysphagia https:/ ?(swallowing difficult). These effects are long-lasting and may become permanent in heavy smokers, turning even a small hernia into a source of ongoing grief. Starting a Fiber Supplement Dietary fiber is a plant-based nutrient that's necessary for the healthy functioning of your digestive system.? ?In addition to helping your bowels stay regular, it's also useful for maintaining optimum cholesterol and blood sugar levels as well as a healthy weight. Although it's technically a carbohydrate, it's not the kind that can be broken down into digestible sugars by the body. Instead, fiber travels through your digestive system while bulking and softening your stool?making it easier to pass. It also helps absorb excess blood sugars and cholesterols. The [place] [employer] recommends 30 grams (g) of fiber a day for men, and 25g a day for women. Fiber is found in fruits, vegetables, legumes, and whole grains, and is an important part of the diet. But because many people find it difficult to eat the recommended quantity of 25 to 38 g per day, fiber supplementation can be extremely helpful to ease the symptoms of a variety of digestive discomforts like diarrhea and constipation. Today, many fiber supplements are found on the market containing one of three active ingredients: psyllium, methylcellulose, and polycarbophil Possible Side Effects The potential side effects of fiber supplementation include: * Gas and gas pain * Abdominal bloating * Lowered blood sugar 1 * Diarrhea or constipation (if taken in excess) * Weight loss * Lessened effectiveness of medications and vitamins (if taken at the same time as fiber) -Side effects can sometimes be minimized by starting with a small amount and slowly increasing until stools become softer and more frequent. Because of the way fiber supplements bulk up in the intestinal tract and absorb surrounding materials, they can interfere with the body's ability to assimilate medications, vitamins, and nutrients. For that reason, it's important to consume fiber supplements at least one hour after, or two hours before, taking medications and important vitamins. This can sometimes be minimized by starting with a small amount and slowly increasing until stools become softer and more frequent. Dosage and Preparation Fiber supplements often come in the form of powders meant to be mixed with water or another liquid. They also are available in capsule form, or as additives to foods like crackers, cookies, cereals, and bars. Dosage will vary based on the product and your desired effects. If you are healthy, it's generally recommended to start with a low dose of fiber and build up until you've reached optimum total daily fiber intake?roughly 25g for women and 38g for men?which should also include your dietary sources of fiber What to Look For When shopping for fiber, look closely at the ingredients to discover which form of fiber is used in each commercial brand. Also, if you're avoiding added sugar, salt, flavorings, or dyes, check the label for these common additives. If you're just starting with a fiber supplement, use a low dose and drink plenty of water when you take the supplement and throughout the day.? If you are not used to eating a high fiber diet/taking a supplement, start with about half of the recommended dose.? Always remember to take fiber with 8oz of water.? Continue at this dose for about 2-3 weeks, and then slowly increase up to the full dose daily.? Fiber is a natural product- you can increase the dose to 2-4 times a day as needed to have a formed BM without straining. Increase the dose slowly until you reach either the desired total intake or a specific effect. Psyllium Psyllium is made from the seeds of a plant in the Plantago genus and contains about 70% soluble fiber and 30% insoluble fiber. It helps the stool absorb water and bulks it up, making?it easier to pass. It also breaks down in the gut (a process called fermentation) and becomes a food source for the good bacteria that reside there. Psyllium is used for treating constipation, irritable bowel syndrome (IBS), and diverticulosis. In addition, psyllium may lower cholesterol ?levels and provide some protection from heart disease.? On the downside, psyllium may cause intestinal gas and contains a small number of calories (roughly 20 calories per tablespoon). Psyllium is sold under the brand names Metamucil, Fiberall, Hydrocil, Konsyl, Perdiem, and Serutan. Methylcellulose Methylcellulose is a non-allergenic and non-fermentable fiber created from the cell solis of plants. Instead of being absorbed by the intestinal tract, methylcellulose pulls in water to create a softer stool. Methylcellulose is often used to treat constipation, diverticulosis, IBS, and some causes of diarrhea. Because it does not ferment, it is less likely than psyllium to cause intestinal gas; however, methylcellulose does not feed healthy gut bacteria the way psyllium does. It can be used nursing home but it should be noted that, because it can interfere with absorption, methylcellulose should be taken apart from any prescribed medications. Methylcellulose is sold under the brand name Citrucel. What are the best dietary sources of fiber? Whether or not you choose to supplement with fiber, it's still important to include a variety of high-fiber foods in your diet, such as: * Fresh fruit (pears, apples, strawberries, bananas) * Fresh vegetables (broccoli, Brussel sprouts, beets, and carrots) * Legumes (lentils, split peas, kidney beans, chickpeas, black beans, mcdonald beans) * Whole Grains (quinoa, oats, brown rice, millet, barley) * Other food sources of fiber (popcorn, sweet potatoes, and lucy) What time of day is best? Different manufacturers may have varying recommendations on when and how frequently to take fiber supplements. You may want to divide your daily dose into two or three portions to reduce bloating and gas that could occur when taking a large dose all at once. To avoid malabsorption, it's important to take medications or vitamins either one hour before, or two hours after, taking fiber supplements. If using a powdered form of fiber, be sure to dissolve it well. No matter what kind of fiber supplement you are using, be sure to drink plenty of water, at least 8ox, unless you are on fluid restrictions. Stand Alone Forms: Anesthesia Discharge InstNeema, Anselmo Saunders ([facility]) Activity:: see above Diet:: see aboe Discharge Orders Discharge Orders: Discharge Order (Routine); Ordered 04/15/23 Ordered By: Haylee Wright DS: Diagnosis Discharge Diagnosis (1) Anemia: (2) Abdominal mass, left lower quadrant: Status: Acute (3) GERD (gastroesophageal reflux disease): Status: Chronic (4) IPF (idiopathic pulmonary fibrosis): Status: Acute (5) Low back pain: Status: Acute (6) Hypertensive disorder: (7) Hyperlipidemia: (8) Gout: (9) Type 2 diabetes mellitus: (10) Osteoarthritis: (11) History of esophageal reflux: (12) Spinal stenosis: (13) Peptic ulcer disease: (14) ILD (interstitial lung disease): (15) Diverticula of colon: Status: Acute (16) Hiatal hernia with GERD: Status: Acute
--- NOTE | 2023-04-15 11:12 | W.ANESPOSTOP ---
Postoperative Evaluation Date, Time and Location Date Performed: 04/15/23 Time Performed: 11:12 Patient Location: Day Surgery Unit Vital Signs Most Recent Imported Vital Signs: Most Recent Vital Signs Temp Pulse Resp BP Pulse Ox 36.1 C L 65 16 150/75 H 98 04/15/23 10:40 04/15/23 10:40 04/15/23 10:40 04/15/23 10:40 04/15/23 10:40 Pain Score Most Recent Pain Score: Most Recent Pain Score Pain Level 0 04/15/23 10:40 Assessment Mental Status: Awake (Alert & Oriented to Patient Baseline) Airway and Respiratory Function: Patent airway with normal (patient baseline) respiratory exam Cardiovascular Function: Hemodynamically Stable Hydration Status: Adequately Hydrated Nausea & Vomiting: No Nausea or Vomiting Pain: Pt. Denies Any Pain Peripheral Nerve Block: Patient did not receive a nerve block
== END 2023-04-15 11:21 | disposition home or self-care (01) ==
PROVIDERS: Visit Provider Surgery
PROC: (CPT 45385; principal; 2023-04-15 09:30)
DX: D64.9 Anemia, unspecified (principal); K21.9 Gastro-esophageal reflux disease without esophagitis; D12.0 Benign neoplasm of cecum; K44.9 Diaphragmatic hernia without obstruction or gangrene; K57.30 Diverticulosis of large intestine without perforation or abscess without bleeding; K64.1 Second degree hemorrhoids; I10 Essential (primary) hypertension; E78.5 Hyperlipidemia, unspecified; E11.9 Type 2 diabetes mellitus without complications; K31.89 Other diseases of stomach and duodenum
CPT/HCPCS: 45385; 43239; 88305; J2001

== ENCOUNTER → 2023-04-16 02:39 | Outpatient (CLI) | payer MEDICARE, SELFPAY ==
--- NOTE | 2023-04-16 06:54 | DI.CT_ITS ---
Exam(s) CT ABDOMEN PELVIS W EXAM: CT ABDOMEN PELVIS W CLINICAL HISTORY: tender,palpable 3cm LLQ mass,,r19.04 TECHNIQUE: Imaging Protocol: Axial computed tomography images with coronal and sagittal reformatted images were created and reviewed CONTRAST MATERIAL: Intravenous: Omnipaque 350 Contrast volume:100 mL Oral: Yes COMPARISON: CT CT ABD/PELVIS W/ CONTRAST from 01/16/2023 FINDINGS: ABDOMEN: Lung Bases: Coronary artery calcifications. There is a large hiatal hernia. There is pulmonary fibr osis in the lung bases. Liver: Normal density. No measurable mass. Portal, Superior Mesenteric, and Splenic Veins: Unremarkable. Gallbladder and Biliary Tract: Status post cholecystectomy. No significant biliary ductal dilatation . Pancreas: There is fatty replacement of the pancreas. No acute process is identified. Spleen: Normal. Adrenals: No masses seen. Kidneys: Normal size, contour and axis. No radiodense stones or obstructive uropathy. No masses seen. Abdominal Aorta: Abdominal portion non-dilated. Atherosclerosis. Bowel: There is diverticulosis of the colon but no evidence of acute diverticulitis. There is no rambo dence of bowel obstruction or bowel wall thickening. No evidence of appendicitis. Peritoneal Cavity: No ascites, collection or mesenteric inflammatory response. No free air. Lymph Nodes: Within normal limits. Bones: Within normal limits for the patient's age. There are marked degenerative changes seen in the hips bilaterally. Soft Tissues: There is a fat containing right inguinal hernia. There has been no change in the chron ic peripherally calcified fluid collection at the distal iliopsoas. The collection measures 2.3 cm. PELVIS: Bladder: There is a small right-sided urinary bladder diverticulum. There is diffuse thickening of t he wall of the urinary bladder. Reproductive Organs: Unremarkable as visualized. Lymph Nodes: Within normal limits. Bones: Within normal limits for the patient's age. IMPRESSION: 1. Stable chronic peripherally calcified fluid collection in the distal iliopsoas adjacent to the lef t hip joint. It measures 2.3 cm. 2. No acute abdominal or pelvic process. 3. Stable incidental findings in the abdomen, lower chest and pelvis as described above. RADIATION DOSE DELIVERED: Total DLP DATA REPOSITORY: All CT scans at this facility are submitted to the National Radiology Data Registry (NRDR) Dose Index Registry (DIR) with the [employer] (A[employer]). RADIATION OPTIMIZATION: All CT scans at this facility use at least one of these dose optimization te chniques: automated exposure control; mA and/or kV adjustment per patient size (includes targeted exa ms where dose is matched to clinical indication); or iterative reconstruction.
[2023-04-16] MEDS: Barium Sulfate 2% W/V-Berry Smoothie 450 ML BTL PO (08:31)
[2023-04-16 08:41] LABS: CREATININE 1.1 mg/dL (0.70-1.30); Estimated GFR 71.32 (mL/min/1.73m2)
[2023-04-16] MEDS: Normal Saline - Diluent 50 ML VIAL IJ (10:20)
[2023-04-16] MEDS: Omnipaque 350 MG/ML 500 ML BTL-Imaging package IJ (10:21)
== END ==
PROVIDERS: PCP Family Medicine; Visit Provider Student in an Organized Health Care Education/Training Program
DX: K44.9 Diaphragmatic hernia without obstruction or gangrene (principal); M62.89 Other specified disorders of muscle
CPT/HCPCS: 74177; 82565

== ENCOUNTER → 2023-06-04 13:15 | Outpatient (CLI) | payer MEDICARE, SELFPAY ==
--- NOTE | 2023-06-04 11:28 | DI.RAD_ITS ---
Exam(s) XR CHEST 2V PA LATERAL EXAM: XR CHEST 2V PA LATERAL CLINICAL HISTORY: r/o pneumonia R05.9 COUGH R06.89 ABNL BREATHING. TECHNIQUE: 2D digital imaging was performed. COMPARISON: CT CT CHEST HIGH RESOLUTION from 03/13/[address] ABDOMEN PELVIS W from 04/16/2023 FINDINGS: 2 views: Heart size is normal. The mediastinum is not widened. Chronically elevated right hemidiaphragm again noted. There is extensive bilateral chronic interstit ial disease again noted./pulmonary fibrosis. No obvious confluent infiltrates nor pleural effusions. No pulmonary edema. No pneumothorax. IMPRESSION: Chronic pulmonary fibrosis. No obvious new infiltrates. No obvious pleural effusions. Chronically elevated right hemidiaphragm DATA REPOSITORY: RADIATION DOSE DELIVERED:
== END ==
PROVIDERS: PCP Family Medicine; Visit Provider Student in an Organized Health Care Education/Training Program
DX: R05.9 Cough, unspecified (principal); R06.89 Other abnormalities of breathing; J84.114 Acute interstitial pneumonitis
CPT/HCPCS: 71046

== ENCOUNTER 2024-09-13 01:29 | Outpatient (CLI) | payer MEDICARE, SELFPAY ==
--- NOTE | 2024-09-13 07:30 | DI.CT_ITS ---
Exam(s) CT ABDOMEN PELVIS W EXAM: CT ABDOMEN PELVIS W CLINICAL HISTORY: Calcified fluid pocket,more painful,? infected,llq abd mass TECHNIQUE: Imaging Protocol: Axial computed tomography images with coronal and sagittal reformatted images were created and reviewed. CONTRAST MATERIAL: Intravenous: Omnipaque 350 Contrast volume:75 mL Oral: Yes COMPARISON: CT CT ABDOMEN PELVIS W from 04/16/2023 FINDINGS: The examination is limited due to patient motion artifact. ABDOMEN: Lung Bases: Coronary artery calcifications are seen. There is moderate-sized paraesophageal hernia. Calcified granuloma are present. There is pulmonary fibrosis. Liver: Normal density. No measurable mass. Portal, Superior Mesenteric, and Splenic Veins: Unremarkable. Gallbladder and Biliary Tract: The gallbladder is absent. There is no biliary ductal dilatation. Pancreas: There is atrophy of the pancreas. No evidence of a pancreatic mass or peripancreatic fluid collection. Spleen: Normal. Adrenals: No masses seen. Kidneys: Normal size, contour and axis. No radiodense stones or obstructive uropathy. No masses seen. Abdominal Aorta: Abdominal portion non-dilated. Atherosclerotic calcification is present. Bowel: No obstruction or bowel wall thickening. No evidence of appendicitis. Peritoneal Cavity: No ascites, collection or mesenteric inflammatory response. No free air. Lymph Nodes: Within normal limits. Bones: Within normal limits for the patient's age. There are marked degenerative changes seen at the hips bilaterally. Soft Tissues: There is a fat containing right inguinal hernia. The partially calcified lesion in the distal left iliopsoas muscle shown slight decrease in size. It measures 1.9 x 1.4 cm. (Series 11, image 236). No inflammatory stranding is seen around the lesion or the muscle. This compares to 2.2 x 1.9 cm on the prior examination. PELVIS: Bladder: There are right sided urinary bladder diverticulum. Reproductive Organs: The prostate gland is mildly enlarged. Lymph Nodes: Within normal limits. Bones: Within normal limits for the patient's age. IMPRESSION: 1. Interval slight decrease in size of the partially calcified lesion in the distal left iliopsoas mu scle. 2. No acute abdominal or pelvic process. 3. No evidence of a left inguinal hernia. RADIATION DOSE DELIVERED: 643.82mGy.cm Total DLP DATA REPOSITORY: All CT scans at this facility are submitted to the National Radiology Data Registry (NRDR) Dose Index Registry (DIR) with the [employer] (A[employer]). RADIATION OPTIMIZATION: All CT scans at this facility use at least one of these dose optimization te chniques: automated exposure control; mA and/or kV adjustment per patient size (includes targeted exa ms where dose is matched to clinical indication); or iterative reconstruction.
[2024-09-13] MEDS: Barium Sulfate 2% W/V-Creamy Vanilla Smoothie 450 ML BTL PO ×2 (12:18→12:19)
[2024-09-13 12:48] LABS: CREATININE 1.4 mg/dL (0.70-1.30); Estimated GFR 53.07 (mL/min/1.73m2)
[2024-09-13] MEDS: Normal Saline - Diluent 50 ML VIAL IJ (14:20)
[2024-09-13] MEDS: Omnipaque 350 MG/ML 100 ML BTL 70 ML IJ (14:21)
== END 2024-09-13 01:49 ==
PROVIDERS: PCP Family Medicine; Visit Provider Family Medicine
DX: R19.04 Left lower quadrant abdominal swelling, mass and lump (principal)
CPT/HCPCS: 74177; 82565; J3490

== ENCOUNTER 2024-10-25 10:48 | Outpatient (CLI) | payer MEDICARE, SELFPAY ==
--- NOTE | 2024-10-25 10:00 | DI.RAD_ITS ---
Exam(s) XR SHOULDER LT COMPLETE 2+V EXAM: XR SHOULDER LT COMPLETE 2+V CLINICAL HISTORY: Pain, loss of ROM after a fall, W19.XXXA. TECHNIQUE: 2D digital imaging was performed. Three views. COMPARISON: No exams were available for comparison FINDINGS: BONES: No acute fracture is present. No bony destructive lesion is seen. Spurring at the tip of the acromion. JOINTS: No dislocation present. Mild spurring at the AC joint. Spurring at the glenoid. The glenoh umeral joint space is maintained. SOFT TISSUE: Normal. IMPRESSION: Degenerative changes. No acute abnormality. DATA REPOSITORY: RADIATION DOSE DELIVERED:
--- NOTE | 2024-10-25 10:00 | DI.RAD_ITS ---
Exam(s) XR WRIST LT COMPLETE EXAM: XR WRIST LT COMPLETE CLINICAL HISTORY: Radial pain after a fall, W19.XXXA. TECHNIQUE: 2D digital imaging was performed. Three views. COMPARISON: No exams were available for comparison FINDINGS: BONES: No acute fracture is present. No bony destructive lesion is seen. JOINTS: The there is severe narrowing of the scaphoid radial joint. There is periarticular spurring and some surrounding bony fragments. Degenerative changes are seen to lesser extent elsewhere.. The re is widening of the scapholunate distance consistent with ligament disruption. SOFT TISSUE: Normal. IMPRESSION: Unremarkable severe degenerative changes the radial scaphoid joint. Disruption of the scapholunate l igament. DATA REPOSITORY: RADIATION DOSE DELIVERED:
== END 2024-10-25 11:08 ==
LOC: DI 10:50
PROVIDERS: PCP Family Medicine; Visit Provider Family Medicine
DX: W19.XXXA Unspecified fall, initial encounter (principal); M25.532 Pain in left wrist
CPT/HCPCS: 73030; 73110

== ENCOUNTER 2024-11-08 02:49 | Outpatient (CLI) | payer MEDICARE, SELFPAY ==
--- NOTE | 2024-11-08 07:30 | DI.MRI_ITS ---
Exam(s) MR LOWER JOINT LT WO EXAM: MR LOWER JOINT LT WO CLINICAL HISTORY: OA BILAT HIPS,M16.0 TECHNIQUE: Multiplanar multisequence MRI of bilateral hip was performed COMPARISON: CT CT ABDOMEN PELVIS W from 09/13/2024 FINDINGS: Bones: There is no evidence of a fracture or avascular necrosis. There is marked arthrosis of the h ips bilaterally characterized by joint space narrowing, subchondral cysts and osteophytes. There is some flattening of the left femoral head. There is a small amount of fluid in the joint spaces bilat erally. The SI joints and symphysis pubis are well maintained. Musculotendinous structures: Musculotendinous structures demonstrate no abnormality. Intrapelvic str uctures demonstrate no significant abnormality. Soft tissues: There is diverticulosis of the colon. There are urinary bladder diverticula. The larg est is on the right and measures 1.5 cm. IMPRESSION: Marked bilateral osteoarthritis of the hips, left greater than right. DATA REPOSITORY:
== END 2024-11-08 03:09 ==
LOC: DI 02:49
PROVIDERS: PCP Family Medicine; Visit Provider Family Medicine
DX: M16.0 Bilateral primary osteoarthritis of hip (principal)
CPT/HCPCS: 73721

== ENCOUNTER 2024-12-08 02:47 | Outpatient (CLI) | payer MEDICARE, SELFPAY ==
--- NOTE | 2024-12-08 07:30 | DI.CT_ITS ---
Exam(s) CT CHEST HIGH RESOLUTION EXAM: CT CHEST HIGH RESOLUTION CLINICAL HISTORY: Known ILD, worsening cough recently,interstitial lung disease,j84.9. TECHNIQUE: Imaging protocol: Axial computed tomography images were obtained and coronal and sagittal reformatted images were created and reviewed. Lung Computer Aided Detection (CAD) was utilized. COMPARISON: CT CT CHEST HIGH RESOLUTION from 03/13/[address] ABDOMEN PELVIS W from 09/13/2024 FINDINGS: Tracheobronchial tree: Patent where visualized. No bronchiectasis is present. Pulmonary parenchyma: Calcified granulomas are present. No focal consolidating infiltrates are prese nt. There is thickening of the septa in the lungs which appears stable and is consistent with pulmon alicia fibrosis. No suspicious pulmonary nodules are seen. Mediastinum and Sarah: No dominant adenopathy or fluid collection. The esophagus is unremarkable.There is a large hiatal hernia. Thyroid gland: Unremarkable. Pleura: No effusion or pneumothorax. Heart: Mild cardiomegaly. Three vessel coronary artery calcification is present. No pericardial eff usion. Aorta: Thoracic aorta non-dilated. Atherosclerotic calcification is present. Upper abdomen: Diverticulosis of the colon is seen. There is pneumobilia present. This was not pre sent on the prior examination. Lymph nodes: Within normal limits. Soft tissues: Unremarkable. Bones:Within normal limits for the patient's age. IMPRESSION: 1. Stable pulmonary fibrosis. 2. No acute pulmonary process. 3. Pneumobilia is seen in the liver. This was not present on the prior examination. Please correlat e with the patient's clinical history. CT scan of the abdomen should be obtained for further evaluat ion. Unexpected findings RADIATION DOSE DELIVERED: 477.98mGy.cm Total DLP 477.98mGy.cm Total DLP DATA REPOSITORY: All CT scans at this facility are submitted to the National Radiology Data Registry (NRDR) Dose Index Registry (DIR) with the [employer] (ACR). RADIATION OPTIMIZATION: All CT scans at this facility use at least one of these dose optimization te chniques: automated exposure control; mA and/or kV adjustment per patient size (includes targeted exa ms where dose is matched to clinical indication); or iterative reconstruction.
--- NOTE | 2024-12-08 07:30 | DI.MRI_ITS ---
Exam(s) MR UPPER JOINT LT WO EXAM: MR UPPER JOINT LT WO CLINICAL HISTORY: Spurring on Xray, suspect additional tendon damage,shoulder arthritis,. TECHNIQUE: Multiplanar multisequence MRI was performed. COMPARISON: CR XR SHOULDER LT COMPLETE 2+V from 10/25/2024 FINDINGS: There is patient motion artifact. BONES: There is no fracture or contusion pattern. JOINTS: Degenerative changes are seen at the acromioclavicular joint. There is superior subluxation of the humeral head relative to the glenoid secondary to the rotator cuff tear. TENDONS: Supraspinatus: There is a complete tear of the supraspinatus tendon with retraction to the level of t he glenohumeral joint. Infraspinatus: There is a large tear of the infraspinatus tendon with retraction to the level of the glenohumeral joint. Subscapularis: Unremarkable. Teres Minor: Unremarkable. Biceps and Delton: Unremarkable. MUSCLES: There is [id number] fatty atrophy of the supraspinatus muscle and mild fatty atrophy o f the infraspinatus muscle. There is edema seen in and around the infraspinatus muscle. GLENOID LABRUM: There appears to be some fraying of the posterior and superior labrum. SOFT TISSUES: Unremarkable. LIGAMENTS: Unremarkable. OTHER: There is fluid seen in the subacromial subdeltoid bursa consistent with a large rotator cuff t ear. IMPRESSION: 1. Complete tears of both the infraspinatus and supraspinatus muscles with retraction to the level of the glenohumeral joint. 2. [id number] fatty atrophy of the supraspinatus muscle and mild fatty atrophy of the infraspin atus muscle. There is edema seen within and around the infraspinatus muscle near the musculotendinou s junction. 3. There is some fraying of the posterior superior labrum. 4. Superior subluxation of the humeral head relative to the glenoid consistent with a rotator cuff te ar. 5. Degenerative changes seen at the acromioclavicular joint. 6. The examination is limited due to patient motion artifact. DATA REPOSITORY:
== END 2024-12-08 03:07 ==
LOC: DI 02:47
PROVIDERS: PCP Family Medicine; Visit Provider Family Medicine
DX: J84.9 Interstitial pulmonary disease, unspecified (principal); M19.012 Primary osteoarthritis, left shoulder; K76.89 Other specified diseases of liver
CPT/HCPCS: 71250; 73221

== ENCOUNTER → 2025-02-15 10:07 | Outpatient (BNVA) | payer MEDICARE, SELFPAY | PROVIDERS: PCP Family Medicine; Referring Provider Family Medicine; Visit Provider Student in an Organized Health Care Education/Training Program | DX: M75.102 Unspecified rotator cuff tear or rupture of left shoulder, not specified as traumatic (principal); M12.812 Other specific arthropathies, not elsewhere classified, left shoulder; M25.611 Stiffness of right shoulder, not elsewhere classified; G56.02 Carpal tunnel syndrome, left upper limb | CPT/HCPCS: 99214; 20610; J1010 ==

== ENCOUNTER 2025-03-11 10:50 | Outpatient (CLI) | payer MEDICARE, SELFPAY ==
--- NOTE | 2025-03-11 10:00 | DI.RAD_ITS ---
Exam(s) XR HAND LT COMPLETE EXAM: XR HAND LT COMPLETE CLINICAL HISTORY: left hand pain. TECHNIQUE: 2D digital imaging was performed. COMPARISON: No exams were available for comparison FINDINGS: 3 views No evidence of acute fracture or dislocation. No osseous lesions nor erosions. There is a tiny sub mm density in the soft tissues off the medial aspect of the base of the middle phalanx of the 3rd-middle finger. This may be a tiny foreign body. The adjacent bone appears unremarkable. On the lateral view there is a small 1-2 mm osteophytic density off the dorsal base of the distal phalanx of the 5th finger noted. Also on the lateral view are multiple calcifications off the dorsal aspect of the wrist. There are also advanced degenerative changes in the radiocarpal joint and there is no widening of the scapholunate distance evident implying disruption of the scapholunate ligament. There is no proximal migration of the capitate bone. IMPRESSION: Advanced degenerative narrowing changes in the radiocarpal joint of the wrist and widening of the scapholunate distance implying disruption of the scapholunate ligament. Tiny sub mm density in the soft tissues of the 3rd finger as described above; possibly a foreign body. There is no soft tissue swelling nor gas in the soft tissues at this level. Small osteophytic density adjacent to the dorsal base of the distal phalanx of the 5th finger. Possibly prior avulsion fracture at this level. DATA REPOSITORY: RADIATION DOSE DELIVERED:
== END 2025-03-11 10:51 | disposition home or self-care (01) ==
LOC: DIORS 10:51
PROVIDERS: PCP Family Medicine; Referring Provider Family Medicine; Visit Provider Physician Assistant
DX: G56.02 Carpal tunnel syndrome, left upper limb (principal); M19.132 Post-traumatic osteoarthritis, left wrist; M16.0 Bilateral primary osteoarthritis of hip
CPT/HCPCS: 99214; 73130

== ENCOUNTER → 2025-04-04 10:39 | Outpatient (BNVA) | payer MEDICARE, SELFPAY | PROVIDERS: PCP Family Medicine; Referring Provider Family Medicine; Visit Provider Student in an Organized Health Care Education/Training Program | DX: G56.02 Carpal tunnel syndrome, left upper limb (principal); M19.132 Post-traumatic osteoarthritis, left wrist; M16.0 Bilateral primary osteoarthritis of hip | CPT/HCPCS: 20611; 99213; J1010 ==

== ENCOUNTER 2025-04-26 08:50 | Day surgery (SDC) | payer MEDICARE, SELFPAY ==
--- NOTE | 2025-04-26 07:16 | W.PM.DSUDISC ---
Date of service: 04/26/25 Discharge Plan Disposition Patient Disposition: Home Condition: Good Discharge Details Reason For Visit: Left carpal tunnel syndrome Attending Provider: Fernando Farrar Primary Care Provider: Gigi North Home Meds and New Rx's Prescriptions: New hydrocodone-acetaminophen 5-325 mg tablet 1 tab PO Q6H PRN (Reason: severe pain) Qty: 4 0RF Rx Instructions: Take one tablet up to every 6 hours as needed for severe postoperative pain Continued omeprazole 20 mg capsule,delayed release(DR/EC) 20 mg PO QDAY Qty: 90 3RF acetaminophen 500 mg capsule 1,000 mg PO QHS simethicone [Gas Relief Extra Strength] 125 mg tablet,chewable 125 mg PO QD-BID PRN glimepiride 1 mg tablet 1 mg PO DAILY Qty: 90 3RF meloxicam 7.5 mg tablet 7.5 mg PO BID Qty: 180 3RF Discharge Instructions Stand Alone Forms: Leni Espinoza Tunnel Release Activity:: Elevate Remove Dressings/Wound Care:: 48 hours Shower/Bathe:: 48 hours Diet:: As Tolerated Discharge Orders Discharge Orders: Discharge Order (Routine); Ordered 04/26/25 Ordered By: Haylee Pacheco
[2025-04-26 09:14] VITALS: BP 172/86; PULSE 110; RESP 20; TEMP 36.3; O2SAT 93
[2025-04-26] MEDS: Cephalexin 500 MG CAP 1000 MG PO (09:20)
[2025-04-26] MEDS: Sodium Bicarbonate 50 MEQ/50 ML VIAL (10:07)
[2025-04-26] MEDS: Lidocaine 1% Pres-Free W/EPI 1/200,000 10 ML VIAL (10:07)
--- NOTE | 2025-04-26 10:19 | ROE_ITS ---
Operative Note Operative Note PRE-OP DIAGNOSIS: Left Carpal Tunnel Syndrome POST-OP DIAGNOSIS: same PROCEDURE: Left Endoscopic Carpal Tunnel Release SURGEON: Fernando Farrar ANESTHESIA TYPE: Local By Surgeon Refer to Anesthesia Record ESTIMATED BLOOD LOSS: 0 PATHOLOGY: none sent TOURNIQUET TIME: 9 COMPLICATIONS: None Patient was transported to: same day Patient's condition: stable Indications: I have seen Ethan in clinic for symptoms of carpal tunnel syndrome. The numbness, tingling, and pain limited function. Clinical exam findings confirmed the diagnosis of carpal tunnel syndrome. Nonoperative measures such as bracing, time, activity modifications had been tried but disability and pain persisted. I discussed carpal tunnel release with the patient. I reviewed the risks of the procedure to include, but not limited to, bleeding, infection, pain, stiffness, incomplete release, damage to nerves or vessels, persistent numbness, recurrence. Despite these risks, the patient elected to proceed. Findings: There was tightened carpal tunnel. This was dilated and released successfully with the endoscopic with increased space within the tunnel. The antebrachial fascia was released proximally freeing the median nerve at the wrist. Procedure Description: Ethan was greeted in the preoperative holding area where the correct side was identified and marked. The consent was reviewed with the patient and signed. The history and physical was updated. All questions were answered. Ethan was taken back to the operating room. The patient was placed into the supine position on the operating room table with the left arm on an arm board. A nonsterile tourniquet was placed high onto the arm. All bony prominences were well padded. Prophylactic antibiotics in the form of Cephalexin were administered in DSU. The left arm was then prepped with Chloraprep and draped in a standard fashion with stockinette and extremity drape. A timeout to confirm correct identity, side and site, procedure, allergies, anesthesia, and medical concerns was performed. The surgical site was marked in the volar wrist creases in line with the radial border of the fourth ray. This area was anesthetized with approximately 6cc of 1% Lidocaine. The limb was then exsanguinated with an Esmarch. The skin was incised with a 15 blade, approximately 1cm. The skin only was cut and the deeper tissue was dissected bluntly with a tenotomy scissor, avoiding passing nerve and venous structures. The fascia was penetrated and opened bluntly. A two-prong skin hook was placed under this proximal fascial edge. A series of hamate finders were used to identify and dilate the carpal tunnel. Synovial el evator was used to free synovial attachments to the underside of the transverse carpal ligament. My thumb was kept in the palm to umair the distal extent of the carpal tunnel and correctly position the hand. The Microaire endoscope was inserted without difficulty and without resistance. Excellent visualization showed horizontally running fibers of the transverse carpal ligament (TCL). The distal extent of the TCL was visualized and the end of the scope palpated with the thumb. The blade was elevated and withdrawn from distal to proximal. The TCL was split into two flaps. The endoscope was reinserted to confirm complete release and any remnant ligament was incised. The scope was withdrawn and the proximal aspect of the carpal tunnel was grossly inspected and appeared release with the median nerve visible. The antebrachial fascia at the level of the wrist was then freed from the overlying skin and then the underlying median nerve with blunt dissection. This was transected longitudinally for about 3cm proximal to the wrist incision. The wound was then irrigated with easy flow of irrigant distally and proximally. The incision was closed with a single 4-0 Nylon suture. The wound was dressed with Xeroform, Gauze, Kerlix and Nayan. The tourniquet was deflated with the initial dressing and held with some pressure. Blood flow returned easily to all digits with capillary refill less than 2 seconds. The patient tolerated the procedure well and was returned to the Same Day Surgery area in a stable condition suffering no known complication. Date of Procedure: 04/26/25
[2025-04-26 10:23] VITALS: BP 175/91; PULSE 78; RESP 20; TEMP 36.4; O2SAT 97
== END 2025-04-26 10:44 | disposition home or self-care (01) ==
LOC: SUR 08:51
PROVIDERS: PCP Family Medicine; Visit Provider Student in an Organized Health Care Education/Training Program
PROC: 01N54ZZ Release Median Nerve, Percutaneous Endoscopic Approach (ICD-10-PCS; CPT 29848; principal; 2025-04-26 10:00)
DX: G56.02 Carpal tunnel syndrome, left upper limb (principal)
CPT/HCPCS: 29848; J2004

== ENCOUNTER → 2025-05-06 09:52 | Outpatient (BNVA) | payer MEDICARE, SELFPAY | PROVIDERS: PCP Family Medicine; Referring Provider Family Medicine; Visit Provider Physician Assistant | DX: Z47.89 Encounter for other orthopedic aftercare (principal); G56.02 Carpal tunnel syndrome, left upper limb | CPT/HCPCS: 99024 ==